=== PATIENT | female | born 1935 | race Caucasian/White ===

== ENCOUNTER 2018-12-29 09:24 | Day surgery (SDC) | payer MEDICARE, OTHER ==
[~2018-12-29] VITALS: Ht 165.1 cm; Wt 55.0 kg
[~2018-12-29 09:24] MED LIST: ALLO100 PO; AMIL5 PO; ATOR40TA PO; CEPH500 PO; CHOL10002 PO; CLOP75 PO; COLCHICINE0.6 MG; CYAN1000I IM; DOXY100T53 PO; Elemental Calc600 MG PO; FENO54 PO; FURO20 PO; Flonase 0.05% N16 GM; MAGCHL64ER PO; METO25ER PO; Mirapex1 MG PO; NYST100SU SS; Omeprazole20 M1 PO; PANT40 PO; POTCHL20ER PO; Prednisone20 MG PO; RANI150 PO; TIOT18 INH; Zithromax250 MG PO
--- NOTE | 2018-12-29 10:14 | NUR ---
PT PREP COMPLETE. AT BEDSIDE. AWAITING PROCEDURE START. PT HAS NO C/O OF CP OR DISCOMFORT AT THIS TIME. ANSWERS ALL QUESTIONS APPROPRIATELY.
--- NOTE | 2018-12-29 12:33 | NUR ---
PT TO RECOVERY AREA APPROX 5 MINUTES AGO. SLEEPS IF LEFT UNDISTURBED. NO C/O PAIN OR DISCOMFORT. RIGHT GROIN SITE STABLE, NO BLEEDING OR SWELLING NOTED WITH PALAPATION. PPP TO RIGHT FOOT AND UNCHANGED FROM PREOP.
--- NOTE | 2018-12-29 17:00 | NUR ---
SUMMARY: PT HAD UNEVENTFUL POST PROCEDURE RECOVERY PERIOD. LAYED FLAT WITHOUT DIFFICULTY DURING ENTIRE STAY. COOPERATIVE WITH ALL INSTRUCTIONS. GROIN REMAINED STABLE WITHOUT BLEEDING OR SWELLING. PPP. AFTER 4 HRS, MD IN TO REMOVE VENOUS SUTURE IN RIGHT GROIN. REDRESSED AND SECURED. MONITORED x 30 MINUTES POST REMOVAL - NO BLEEDING OR ISSUES NOTED. PT PIVOT TRANSFER TO W/C WITH SBA AND TO BATHROOM. VOIDED LARGE AMOUNT. ASSISTED PATIENT TO DRESS SELF. REASSESSED GROIN POST ACTIVITY - REMAINED STABLE AND NO BLEEDING/SWELLING NOTED. REVIEWED DISCHARGE INSTRUCTIONS WITH PATIENT AND - BOTH OF WHOM VERBALIZED UNDERSTANDING OF ALL INSTRUCTIONS GIVEN. IV D/C TIP INTACT AND PT DISCHARGED HOME WITH TO DRIVE HER.
--- NOTE | 2018-12-29 17:11 | NUR ---
PT WAS MEDICATED WITH PAIN MEDICATION WHILE IN RECOVERY PERIOD FOR BACK DISCOMFORT RELATED TO POSITIONING AND PREVIOUS BACK SURGERY. PT STATED MEDICATION AND HOT PAD APPLIED TO LOWER LEFT BACK/HIP AREA WORKED FOR PAIN AND EXPRESSED COMFORT PRIOR TO DISCHARGE.
== END 2018-12-29 16:00 | disposition home or self-care (01) ==
LOC: MHTC 09:24
DX: I35.0 Nonrheumatic aortic (valve) stenosis (principal); Z88.8 Allergy status to other drugs, medicaments and biological substances; I10 Essential (primary) hypertension; E78.5 Hyperlipidemia, unspecified; G25.81 Restless legs syndrome; J44.9 Chronic obstructive pulmonary disease, unspecified; G47.30 Sleep apnea, unspecified; Z87.891 Personal history of nicotine dependence
CPT/HCPCS: 85347; 93456; 93571; 99152; 99153; C1760; C1769; C1887; Q9967

== ENCOUNTER → 2019-01-19 | Outpatient (CLI) | payer MEDICARE, OTHER | END | disposition home or self-care (01) | LOC: PLD 11:11 → LAB SHORT 11:11 | DX: D48.5 Neoplasm of uncertain behavior of skin (principal) | CPT/HCPCS: 88305 ==

== ENCOUNTER → 2019-06-23 | Outpatient (CLI) | payer MEDICARE ==
[2019-06-23 13:33] LABS: Bilirubin, Urine Neg (Neg); Blood, Urine Neg (Neg); Glucose Qualitative, Urine Neg (Neg); Ketones, Urine Neg (Neg); Leukocyte Esterase, Urine 3+ (Neg); Nitrite, Urine Neg (Neg); Protein, Urine Neg (Neg); Specific Gravity, Urine 1.015 (1.003-1.022); Urobilinogen, Urine NORM (Normal)
[2019-06-23 13:54] LABS: Appearance, Urine Hazy (Clear); Color, Urine Yellow (P-Yellow)
[2019-06-23 14:08] LABS: Red Blood Cells, Urine Not Seen /hpf (0-2)
[2019-06-23 14:09] LABS: Bacteria Many /hpf; Squamous Epithelial Cells Mod /hpf (Few); White Blood Cells, Urine 25-50 /hpf (0-5)
== END | disposition home or self-care (01) ==
LOC: OLS 06:13 → LAB SHORT 06:13
PROVIDERS: Internal Medicine
DX: N18.3 Chronic kidney disease, stage 3 (moderate) (principal)
CPT/HCPCS: 81001; 82570; 84156

== ENCOUNTER → 2019-09-06 | Outpatient (CLI) | payer MEDICARE ==
[2019-09-06 10:42] LABS: Source, Urine Clean Catch
[2019-09-06 12:45] LABS: Bilirubin, Urine Neg (Neg); Blood, Urine Neg (Neg); Glucose Qualitative, Urine Neg (Neg); Ketones, Urine Neg (Neg); Leukocyte Esterase, Urine 1+ (Neg); Nitrite, Urine Neg (Neg); Protein, Urine Neg (Neg); Urobilinogen, Urine NORM (Normal)
[2019-09-06 13:13] LABS: Appearance, Urine Clear (Clear); Color, Urine Yellow (P-Yellow); Red Blood Cells, Urine 0-2 /hpf (0-2)
[2019-09-06 13:14] LABS: Bacteria Few /hpf; Squamous Epithelial Cells Few /hpf (Few)
[2019-09-06 14:26] LABS: Protein, Urine Random <5.0 mg/dL (0.0-11.9)
== END | disposition home or self-care (01) ==
LOC: LAB 10:40 → LAB SHORT 10:40
PROVIDERS: Internal Medicine
DX: N18.3 Chronic kidney disease, stage 3 (moderate) (principal)
CPT/HCPCS: 81001; 82570; 84156

== ENCOUNTER 2019-12-18 15:16 | Inpatient (IN) | payer OTHER ==
[~2019-12-18] VITALS: Ht 149.9 cm; Wt 45.8 kg
[~2019-12-18 15:16] MED LIST changes: +B-121000 MC4 PO; -CYAN1000I IM
[2019-12-18 15:42] LABS: BASOPHILS ABSOLUTE AUTO 0.07 K/mm3 (0.00-0.23); BASOPHILS PERCENT AUTO 0 % (0-2); EOSINOPHILS ABSOLUTE AUTO 0.03 K/mm3 (0.00-0.68); EOSINOPHILS PERCENT AUTO 0 % (0-6); Hematocrit 42.3 % (33.0-51.0); IMMATURE GRAN ABSOLUTE AUTO 0.14 K/mm3 (0.00-0.10); IMMATURE GRAN PERCENT AUTO 1 % (0-1); LYMPHOCYTES ABSOLUTE AUTO 1.23 K/mm3 (0.84-5.20); LYMPHOCYTES PERCENT AUTO 6 % (21-46); MONOCYTES ABSOLUTE AUTO 0.95 K/mm3 (0.16-1.47); MONOCYTES PERCENT AUTO 4 % (4-13); Mean Corpuscular HGB 26.7 pg (26.0-34.0); Mean Corpuscular HGB Conc 30.7 g/dL (31.5-36.5); Mean Corpuscular Volume 87 fL (80-100); Mean Platelet Volume 10.3 fL (9.1-12.4); NEUTROPHILS PERCENT AUTO 89 % (41-73); Platelet Count 180 K/mm3 (150-400); RDW Coefficient Variation 17.1 % (11.7-14.2); RDW Standard Deviation 54.1 fL (35.1-46.3); Red Blood Cell Count 4.87 M/mm3 (3.80-5.20); White Blood Cell Count 22.32 K/mm3 (4.00-11.30)
[2019-12-18 16:00] LABS: Alanine Aminotransfer (ALT/SGP 20 U/L (12-78); Albumin, Blood 3.6 g/dL (3.4-5.0); Albumin/Globulin Ratio 0.8 (0.8-1.8); Alk Phos 65 U/L (50-136); Anion Gap 9 mmol/L (6-16); Aspartate Aminotrans (AST/SGOT 18 U/L (12-37); Bilirubin, Total 0.4 mg/dL (0.1-1.0); Blood Urea Nitrogen 32 mg/dL (8-24); Bun/Creatinine Ratio 31.4 (12.0-20.0); CO2, Blood 26 mmol/L (21-32); Calcium, Blood 9.9 mg/dL (8.5-10.1); Chloride, Blood 109 mmol/L (98-108); Creatinine, Blood 1.02 mg/dL (0.40-1.00); Globulin, Blood 4.3 g/dL (2.2-4.0); Glomerular Filtration Rate 55 (60-); Glucose, Blood 161 mg/dL (70-99); Potassium, Blood 3.7 mmol/L (3.5-5.5); Sodium, Blood 144 mmol/L (136-145); Total Protein, Blood 7.9 g/dL (6.4-8.2); Troponin I <0.015 ng/mL (0.000-0.040)
[2019-12-18 16:27] LABS: PCO2 Arterial 41.3 mmHg (35-45); PO2 Arterial 61.9 mmHg (80-100); pH Blood Arterial 7.47 (7.35-7.45)
[2019-12-18 17:56] LABS: Adenovirus Not Detected (NOT DETECT); Bordetella pertussis Not Detected (NOT DETECT); Chlamydophila pneumoniae Not Detected (NOT DETECT); Coronavirus 229E Not Detected (NOT DETECT); Coronavirus HKU1 Not Detected (NOT DETECT); Coronavirus NL63 Not Detected (NOT DETECT); Coronavirus OC43 Not Detected (NOT DETECT); Human Metapneumovirus Not Detected (NOT DETECT); Human Rhinovirus/Enterovirus Not Detected (NOT DETECT); Influenza A Not Detected (NOT DETECT); Influenza A/2009-H1 Not Detected (NOT DETECT); Influenza A/H1 Not Detected (NOT DETECT); Influenza A/H3 Not Detected (NOT DETECT); Influenza B Not Detected (NOT DETECT); Mycoplasma pneumoniae Not Detected (NOT DETECT); Parainfluenza Virus 1 Not Detected (NOT DETECT); Parainfluenza Virus 2 Not Detected (NOT DETECT); Parainfluenza Virus 3 Not Detected (NOT DETECT); Parainfluenza Virus 4 Not Detected (NOT DETECT); Respiratory Syncytial Virus Not Detected (NOT DETECT)
[2019-12-18] MEDS ORDERED: ELIQUIS2.5 MG PO (18:08)
[2019-12-18] MEDS ORDERED: Aspirin EC81 MG PO (18:09)
[2019-12-18] MEDS ORDERED: LEVSOD50 PO (18:10)
[2019-12-18 19:21] LABS: Free Thyroxine 0.87 ng/dL (0.70-1.60)
[2019-12-18 19:23] LABS: Thyroid Stimulating Hormone 19.2 uIU/mL (0.360-4.800)
[2019-12-18 21:23] LABS: Source, Urine Clean Catch
[2019-12-18 21:29] LABS: Appearance, Urine Clear (Clear); Bilirubin, Urine Neg (Neg); Blood, Urine Neg (Neg); Color, Urine Yellow (P-Yellow); Glucose Qualitative, Urine Neg (Neg); Ketones, Urine Neg (Neg); Leukocyte Esterase, Urine 1+ (Neg); Nitrite, Urine Neg (Neg); Protein, Urine 2+ (Neg); Specific Gravity, Urine 1.015 (1.003-1.022); Urobilinogen, Urine NORM (Normal)
[2019-12-18 21:36] LABS: Bacteria Few /hpf; Red Blood Cells, Urine 0-2 /hpf (0-2); Squamous Epithelial Cells Few /hpf (Few)
--- NOTE | 2019-12-19 02:43 | NUR ---
ADMISSION: PATIENT ARRIVED TO [facility] VIA [facility] AT APPROX 1915, PATIENT ABLE TO PIVOT TRANSFER FROM [facility] TO BED WITH 1 PERSON ASSIST. PATIENT ALERT AND ORIENTED BUT FORGETFULL, SKIN FRAGILE BUT C/D/I, FAMILY AT BEDSIDE. ADMISSION COMPLETED AND PATIENT ORIENTED TO CALL LIGHT, ROOM AND HOSPITAL POLICIES. LUNGS AUDIBLY COURSE, PATIENT DYSPNIC WITH ANY ACTIVITY. LACTIC INCREASED FROM 2.2 TO 4.7, MITER CUTTER VALARIE MADE AWARE, NO FURTHER ORDERS AT THIS TIME. VSS, MONITORING CAREFULLY. BED LOW AND LOCKED, CALL LIGHT WITHIN REACH AND EXIT ALARM ON.
[2019-12-19 04:22] LABS: BASOPHILS ABSOLUTE AUTO 0.01 K/mm3 (0.00-0.23); BASOPHILS PERCENT AUTO 0 % (0-2); EOSINOPHILS PERCENT AUTO 0 % (0-6); Hemoglobin 11.4 g/dL (11.5-16.0); IMMATURE GRAN ABSOLUTE AUTO 0.08 K/mm3 (0.00-0.10); IMMATURE GRAN PERCENT AUTO 1 % (0-1); LYMPHOCYTES ABSOLUTE AUTO 0.66 K/mm3 (0.84-5.20); LYMPHOCYTES PERCENT AUTO 5 % (21-46); MONOCYTES ABSOLUTE AUTO 0.06 K/mm3 (0.16-1.47); MONOCYTES PERCENT AUTO 1 % (4-13); Mean Corpuscular HGB 26.6 pg (26.0-34.0); Mean Corpuscular HGB Conc 30.8 g/dL (31.5-36.5); Mean Corpuscular Volume 86 fL (80-100); Mean Platelet Volume 10.2 fL (9.1-12.4); NEUTROPHILS ABSOLUTE AUTO 12.31 K/mm3 (1.96-9.15); NEUTROPHILS PERCENT AUTO 94 % (41-73); Platelet Count 158 K/mm3 (150-400); RDW Coefficient Variation 16.8 % (11.7-14.2); RDW Standard Deviation 52.9 fL (35.1-46.3); Red Blood Cell Count 4.29 M/mm3 (3.80-5.20); White Blood Cell Count 13.12 K/mm3 (4.00-11.30)
[2019-12-19 04:46] LABS: Albumin/Globulin Ratio 0.7 (0.8-1.8); Bilirubin, Total 0.4 mg/dL (0.1-1.0); Bun/Creatinine Ratio 28.1 (12.0-20.0); Calcium, Blood 9.8 mg/dL (8.5-10.1); Creatinine, Blood 1.14 mg/dL (0.40-1.00); Globulin, Blood 4.1 g/dL (2.2-4.0); Potassium, Blood 4.1 mmol/L (3.5-5.5); Total Protein, Blood 7.1 g/dL (6.4-8.2)
[2019-12-19 05:32] LABS: PCO2 Arterial 35.9 mmHg (35-45); PO2 Arterial 73.6 mmHg (80-100); pH Blood Arterial 7.46 (7.35-7.45)
--- NOTE | 2019-12-19 06:46 | NUR ---
SHIFT SUMMARY: PATIENT TO HAVE ECHO TODAY, ST EVAL. PATIENT BEDSIDE SWALLOW COMPLETED AND PATIENT ABLE TO SWALLOW THIN LIQUIDS WITH NO DIFFICULTY. PATIENT COMPLIANT WITH CARE. VSS, BED LOW AND LOCKED, CALL LIGHT WITHIN REACH.
--- NOTE | 2019-12-19 07:55 | NUR ---
ASSUMPTION OF CARE RECEIVED REPORT FROM HIGH SCHOOL TUTOR RN. PT AAOX3, BUT VERY FORGETFUL. VS STABLE, CURRENTLY ON 5L O2 VIA NC. RESPIRATIONS EVEN & UNLABORED AT REST, COARSE CRACKLES NOTED THROUGHOUT LUNG BARRY. PT TO REMAIN NPO UNTIL SPEECH THERAPY IN TO EVALUATE. ALSO OPEN FOR ECHO TODAY. BED LOCKED & IN LOWEST POSITION, CALL GARCIA W/ IN REACH. WILL CONTINUE TO MONITOR.
--- NOTE | 2019-12-19 09:15 | NUR ---
SPEECH THERAPIST PAYAM IYER TO EVALUATE PT; RECOMMENDS MECHANICAL SOFT DIET, SMALL SIPS THIN LIQUIDS, NO STRAWS; ASPIRATION PRECAUTIONS. HOB TO REMAIN 90 DEGRESS DURING MEALS & FOR AT LEAST 45 MIN ATFER MEALS. PT FINISHED W/ BREAKFAST AT THIS TIME. ADMINISTERED MEDS TO PT, ABLE TO SWALLOW WHOLE W/ SIPS OF WATER; NO DIFFICULTY. PT'S SON AT BEDSIDE. WILL CONTINUE TO MONITOR.
--- NOTE | 2019-12-19 10:46 | NUR ---
ECHOCARDIOGRAM COMPLETE
--- NOTE | 2019-12-19 13:14 | NUR ---
SHIFT SUMMARY REPORT GIVEN TO ULYSSES TURK. NO ACUTE CHANGES THROUGHOUT SHIFT. VS REMAIN STABLE, PT CURRENTLY ON 4L O2 VIA NC. PT DENIED ANY CHEST PAIN/PRESSURE OR SOB. SUPERVISOR WRAPPING ROOM DR. HECTOR IN TO SEE PT, ORDERED CT SCAN OF THE CHEST; COMPLETED EARLIER. PLAN FOR POSSIBLE BRONCHOSCOPY PENDING CT RESULTS.
--- NOTE | 2019-12-19 14:50 | NUR ---
Spiritual care visit conducted. Patient is sitting up in bed and alert. Patient shares with me about her medical history, about her relatively recent move to [place] and about her taoist background (patient is Jehovah'S Witness). Patient also shares about about the of her in 2002 and the murder of her son in 2003. Patient is is very tearful about this as can be expected. Patient talks about her strength and her goal of making it to the age of 89. I listen empathically, explore patient's taoist beliefs, normalize patient's experience, reinforce helpful attitudes and practices, recommend at few churches in her belief system and provide grief support, pastoral work counselor and prayer. Patient responds well and shows signs of an elevated mood. I will continue to remain available to patient and family.
--- NOTE | 2019-12-19 17:55 | NUR ---
SHIFT SUMMARY PT A&Ox3; FORGETFUL AT TIMES. PT RESTING IN BED DURING SHIFT. UP TO BATHROOM W/ 1 PERSON ASSIST. PT SOB WITH EXERTION ON 4-5L O2 VIA NC T/O SHIFT, LS COARSE CRACKLES T/O SHIFT. PLANS FOR BRONCOSCOPY TOMORROW, HELD XARELTO IN ANTICIPATION OF PROCEDURE PER DR HECTOR. PT DENEIS PAIN, DIZZINESS, CHEST PAIN/PRESSURE AND NASUEA. PT RECEIVING IV STERIODS AND LASIX THIS AM. VSS. NO OTHER ACUTE CHANGES NOTED DURING SHIFT. WILL CONTINUE TO MONITOR UNTIL REPORT GIVEN TO ONCOMING RN.
[2019-12-20 04:35] LABS: Bun/Creatinine Ratio 35.5 (12.0-20.0); Calcium, Blood 9.6 mg/dL (8.5-10.1); Creatinine, Blood 1.24 mg/dL (0.40-1.00); Potassium, Blood 4.1 mmol/L (3.5-5.5)
--- NOTE | 2019-12-20 05:56 | NUR ---
SHIFT SUMMARY: PATIENT NPO SINCE 0000, X1 EPISODE OF CONFUSION UPON WAKING BUT EASILY REORIENTED. VSS, CALL LIGHT WITHIN REACH, NO OTHER ISSUES NOTED.
--- NOTE | 2019-12-20 07:28 | NUR ---
ASSUMPTION OF CARE PT SITTING UP IN BED. SPO2 93-94% ON 4L O2 VIA NC; BREATHING EVEN AND UNLABORED. REPORTS SOB AND "A LITTLE DIZZINESS" WITH AMBULATION. PT A&Ox3; CALM AND COOPERATIVE WITH CARE. 1 PERSON ASSIST TO BATHROOM. PT DENIES PAIN, CHEST PAIN/PRESSURE, NAUSEA AND NUMB/TINGLING. PT CURRENTLY NPO FOR BRONCOSCOPY THIS AFTERNOON, PT EDUCATED ON NPO STATUS AND PLANS FOR PROCEDURE LATER THIS AFTERNOON AND IS AGREEABLE. VSS. WILL CONTINUE TO MONITOR
--- NOTE | 2019-12-20 13:14 | NUR ---
PT TAKEN TO DAY SURGERY
--- NOTE | 2019-12-20 14:52 | NUR ---
12/20/19 1452 Ze Webber History, Chart, Medications and Allergies reviewed before start of procedure.MONITOR INTACT WITH CONTINUOUS PULSE OXIMETRY AND INTERMITTENT BP.3-LEAD EKG REVIEWED WITH PHYSICIAN PRIOR TO START OF PROCEDURE.O2 VIA N/C INTACT THROUGHOUT SEDATION/PROCEDURE.
--- NOTE | 2019-12-20 18:45 | NUR ---
SHIFT SUMMARY PT BACK FROM DAY SURGERY AT 1600, PT O2 SATURATSION 84-86% ON 4L O2 VIA NC, ATEMPTED TO TITRATED TO 7L O2 VIA NC; NOTIFIED RT TITRATED TO 10L O2 VIA NC AT 90-92%; TITRATED BACK DOWN TO 5L O2 VIA NC. VSS. PASSED GAG REFLEX AND SWALLOWED WATER WITH COUGH OR S/SX OF ASPIRATION; RESTARTED PREVIOUS DIET PER DR HECTOR ORDERS. VSS. NO OTHER ACUTE CHANGES NOTED DURING SHIFT. WILL CONTINUE TO MONITOR UNTIL REPORT GIVEN TO ONCOMING RN.
[2019-12-21 05:14] LABS: BASOPHILS ABSOLUTE AUTO 0.02 K/mm3 (0.00-0.23); BASOPHILS PERCENT AUTO 0 % (0-2); EOSINOPHILS PERCENT AUTO 0 % (0-6); Hematocrit 34.5 % (33.0-51.0); Hemoglobin 10.9 g/dL (11.5-16.0); IMMATURE GRAN ABSOLUTE AUTO 0.17 K/mm3 (0.00-0.10); IMMATURE GRAN PERCENT AUTO 1 % (0-1); LYMPHOCYTES ABSOLUTE AUTO 0.94 K/mm3 (0.84-5.20); LYMPHOCYTES PERCENT AUTO 5 % (21-46); MONOCYTES ABSOLUTE AUTO 0.47 K/mm3 (0.16-1.47); MONOCYTES PERCENT AUTO 2 % (4-13); Mean Corpuscular HGB 27.2 pg (26.0-34.0); Mean Corpuscular HGB Conc 31.6 g/dL (31.5-36.5); Mean Corpuscular Volume 86 fL (80-100); Mean Platelet Volume 11.2 fL (9.1-12.4); NEUTROPHILS PERCENT AUTO 92 % (41-73); Platelet Count 169 K/mm3 (150-400); RDW Coefficient Variation 16.6 % (11.7-14.2); RDW Standard Deviation 52.6 fL (35.1-46.3); Red Blood Cell Count 4.01 M/mm3 (3.80-5.20)
[2019-12-21 05:32] LABS: Bun/Creatinine Ratio 38.4 (12.0-20.0); Calcium, Blood 9.4 mg/dL (8.5-10.1); Creatinine, Blood 1.12 mg/dL (0.40-1.00)
--- NOTE | 2019-12-21 05:56 | NUR ---
END OF SHIFT SUMMARY VSS. NO ACUTE CHANGES THIS SHIFT. LUNG SOUNDS COARSE T/O WITH EXP WHEEZIG. PT STATES THIS HAS IMPROVED. REMAINS AT 4LNC WHICH IS BASELINE. PT HAS BEEN SLEEPING OFF AND ON T/O SHIFT. VERY PLEASANT AND COOPRATIVE WITH CARE. WILL CONTINUEBN TO MONITOR UNTIL SHIFT CHANGE.
--- NOTE | 2019-12-21 17:57 | NUR ---
RECEIVED REPORT FROM PCU NURSE, BRONCHOSOPY, COURSE, A+O, CHRONIC RESPIRTORY, CKD3, ON [facility] SOFT DIET, FULL CODE, LYDIA APPRPRIATELY, NO IV, 6L VIA NC, CHOKING PERCAUTIONS, NO STRAW, 90 DEGREE, NO BM FOR 3 DAYS, GFR 49, ACCOMPANIED, ATTEMPTED START IV, TRIED CALL TO PULMOLOGIST TO CHANGE MEDICATION TO PO VS IV, SITTING UP IN BED ENJOYING DINNER
--- NOTE | 2019-12-21 19:25 | NUR ---
a+o, moved up here from pcu, 4L via nc, no IV specialist ok'd po medication so no need to restart IV, call light in reach, in room bed in low position, report given to noc nurse, course, sitting up watching tv and playing cards
[2019-12-22 05:46] LABS: BASOPHILS ABSOLUTE AUTO 0.01 K/mm3 (0.00-0.23); BASOPHILS PERCENT AUTO 0 % (0-2); EOSINOPHILS PERCENT AUTO 0 % (0-6); Hematocrit 34.4 % (33.0-51.0); Hemoglobin 10.8 g/dL (11.5-16.0); IMMATURE GRAN ABSOLUTE AUTO 0.12 K/mm3 (0.00-0.10); IMMATURE GRAN PERCENT AUTO 1 % (0-1); LYMPHOCYTES ABSOLUTE AUTO 0.99 K/mm3 (0.84-5.20); LYMPHOCYTES PERCENT AUTO 8 % (21-46); MONOCYTES ABSOLUTE AUTO 0.15 K/mm3 (0.16-1.47); MONOCYTES PERCENT AUTO 1 % (4-13); Mean Corpuscular HGB 26.9 pg (26.0-34.0); Mean Corpuscular HGB Conc 31.4 g/dL (31.5-36.5); Mean Corpuscular Volume 86 fL (80-100); Mean Platelet Volume 10.5 fL (9.1-12.4); NEUTROPHILS ABSOLUTE AUTO 11.38 K/mm3 (1.96-9.15); NEUTROPHILS PERCENT AUTO 90 % (41-73); Platelet Count 154 K/mm3 (150-400); RDW Coefficient Variation 16.6 % (11.7-14.2); RDW Standard Deviation 52.1 fL (35.1-46.3); Red Blood Cell Count 4.01 M/mm3 (3.80-5.20); White Blood Cell Count 12.65 K/mm3 (4.00-11.30)
[2019-12-22 06:20] LABS: Bun/Creatinine Ratio 41.6 (12.0-20.0); Calcium, Blood 9.2 mg/dL (8.5-10.1); Creatinine, Blood 1.01 mg/dL (0.40-1.00); Potassium, Blood 4.4 mmol/L (3.5-5.5)
--- NOTE | 2019-12-22 07:46 | NUR ---
SHIFT SUMMARY PT IS PLEASANT AND COOPERATIVE WITH CARE THIS NIGHT. ON 4L O2. RESP E/U. SLEPT MUCH OF NIGHT. NO ACUTE CONCERNS OR CHANGES. REPORT TO ONCOMING RN.
[2019-12-22] MEDS ORDERED: LEVOFLOXACIN750 MG PO (15:48)
[2019-12-22] MEDS ORDERED: POLYETHYLENE G500 G1 PO (15:49)
[2019-12-22] MEDS ORDERED: Prednisone10 MG PO (15:50)
[2019-12-22] MEDS ORDERED: Florastor250 MG PO (15:50)
--- NOTE | 2019-12-22 16:59 | NUR ---
SUMMARY/DISCHARGE PT BEING DISCHARGED TO HOME, PT AND SPOUSE VERBALIZE UNDERSTANDING OF DISCHARGE INSTRUCTIONS REGARDING MEDS AND FOLLOW UP, WAITING FOR [facility] TO BRING PORTABLE TANK
--- NOTE | 2019-12-22 17:50 | NUR ---
DISCHARGE PT'S PORTABLE OXYGEN DELIVERED, PT TAKEN OUT SAFELY VIA WHEELCHAIR
== END 2019-12-22 17:46 | disposition home or self-care (01) | DRG 193 ==
LOC: ER 15:16 → PCU 17:02 → MEDS 12-21 17:06
PROVIDERS: Emergency Medicine; Internal Medicine Pulmonary Disease; Physician Assistant; Student in an Organized Health Care Education/Training Program; ADMIT Internal Medicine
PROC: 0B9F8ZX Drainage of Right Lower Lung Lobe, Via Natural or Artificial Opening Endoscopic, Diagnostic (ICD-10-PCS; 2019-12-20)
PROC: 0B9J8ZX Drainage of Left Lower Lung Lobe, Via Natural or Artificial Opening Endoscopic, Diagnostic (ICD-10-PCS; principal; 2019-12-20 14:30)
DX: J18.9 Pneumonia, unspecified organism (principal); J96.21 Acute and chronic respiratory failure with hypoxia; J44.1 Chronic obstructive pulmonary disease with (acute) exacerbation; J44.0 Chronic obstructive pulmonary disease with (acute) lower respiratory infection; E78.5 Hyperlipidemia, unspecified; N18.3 Chronic kidney disease, stage 3 (moderate); G25.81 Restless legs syndrome; M10.9 Gout, unspecified; G30.9 Alzheimer's disease, unspecified; F02.80 Dementia in other diseases classified elsewhere, unspecified severity, without behavioral disturbance, psychotic disturbance, mood disturbance, and anxiety; I25.10 Atherosclerotic heart disease of native coronary artery without angina pectoris; I12.9 Hypertensive chronic kidney disease with stage 1 through stage 4 chronic kidney disease, or unspecified chronic kidney disease; Z99.81 Dependence on supplemental oxygen; Z88.5 Allergy status to narcotic agent; Z88.0 Allergy status to penicillin; Z79.82 Long term (current) use of aspirin; Z79.899 Other long term (current) drug therapy; Z87.891 Personal history of nicotine dependence; Z79.01 Long term (current) use of anticoagulants
CPT/HCPCS: 0099U; 36415; 36600; 71045; 71250; 80048; 80053; 81001; 82803; 83605; 83880; 84145; 84439; 84443; 84484; 85025; 87070; 87086; 87205; 92526; 92610; 93005; 93010; 93306; 94640; 94664; 94667; 94668; 94760; 94762; 96374; 96375; 97110; 97116; 97162; 98960; 99285-25; A9270-GY; J0171; J1940; J1956; J2250; J2920; J2930; J3010; J7512

== ENCOUNTER 2020-02-02 23:38 | Inpatient (IN) | payer OTHER ==
[~2020-02-02] VITALS: Ht 157.5 cm; Wt 53.9 kg
[~2020-02-02 23:38] MED LIST changes: +Aspirin EC81 MG PO; +ELIQUIS2.5 MG PO; +EUTHYROX100 MCG PO; +Florastor250 MG PO; +LEVOFLOXACIN750 MG PO; +POLYETHYLENE G500 G1 PO; +Prednisone10 MG PO
[2020-02-03 00:18] LABS: BASOPHILS PERCENT AUTO 1 % (0-2); EOSINOPHILS ABSOLUTE AUTO 0.06 K/mm3 (0.00-0.68); EOSINOPHILS PERCENT AUTO 1 % (0-6); Hematocrit 42.6 % (33.0-51.0); IMMATURE GRAN ABSOLUTE AUTO 0.18 K/mm3 (0.00-0.10); IMMATURE GRAN PERCENT AUTO 2 % (0-1); LYMPHOCYTES ABSOLUTE AUTO 2.46 K/mm3 (0.84-5.20); LYMPHOCYTES PERCENT AUTO 26 % (21-46); MONOCYTES ABSOLUTE AUTO 0.46 K/mm3 (0.16-1.47); MONOCYTES PERCENT AUTO 5 % (4-13); Mean Corpuscular HGB 26.1 pg (26.0-34.0); Mean Corpuscular HGB Conc 30.5 g/dL (31.5-36.5); Mean Corpuscular Volume 85 fL (80-100); Mean Platelet Volume 11.7 fL (9.1-12.4); NEUTROPHILS ABSOLUTE AUTO 6.09 K/mm3 (1.96-9.15); NEUTROPHILS PERCENT AUTO 65 % (41-73); Platelet Count 242 K/mm3 (150-400); RDW Coefficient Variation 18.3 % (11.7-14.2); RDW Standard Deviation 54.3 fL (35.1-46.3); Red Blood Cell Count 4.99 M/mm3 (3.80-5.20); White Blood Cell Count 9.35 K/mm3 (4.00-11.30)
[2020-02-03 00:33] LABS: PCO2 Arterial 36.3 mmHg (35-45); PO2 Arterial 85.6 mmHg (80-100); pH Blood Arterial 7.54 (7.35-7.45)
[2020-02-03 00:39] LABS: Albumin, Blood 3.1 g/dL (3.4-5.0); Albumin/Globulin Ratio 0.7 (0.8-1.8); Bilirubin, Total 0.4 mg/dL (0.1-1.0); Bun/Creatinine Ratio 20.8 (12.0-20.0); Calcium, Blood 8.8 mg/dL (8.5-10.1); Creatinine, Blood 1.3 mg/dL (0.40-1.00); Globulin, Blood 4.2 g/dL (2.2-4.0); Potassium, Blood 3.3 mmol/L (3.5-5.5); Total Protein, Blood 7.3 g/dL (6.4-8.2); Troponin I 0.069 ng/mL (0.000-0.040)
[2020-02-03 00:42] LABS: Magnesium, Blood 0.5 mg/dL (1.6-2.4)
[2020-02-03 03:18] LABS: Adenovirus Not Detected (NOT DETECT); Bordetella pertussis Not Detected (NOT DETECT); Chlamydophila pneumoniae Not Detected (NOT DETECT); Coronavirus 229E Not Detected (NOT DETECT); Coronavirus HKU1 Not Detected (NOT DETECT); Coronavirus NL63 Not Detected (NOT DETECT); Coronavirus OC43 Not Detected (NOT DETECT); Human Metapneumovirus Not Detected (NOT DETECT); Human Rhinovirus/Enterovirus Not Detected (NOT DETECT); Influenza A/2009-H1 Not Detected (NOT DETECT); Influenza A/H1 Not Detected (NOT DETECT); Influenza A/H3 Not Detected (NOT DETECT); Influenza B Not Detected (NOT DETECT); Mycoplasma pneumoniae Not Detected (NOT DETECT); Parainfluenza Virus 1 Not Detected (NOT DETECT); Parainfluenza Virus 2 Not Detected (NOT DETECT); Parainfluenza Virus 3 Not Detected (NOT DETECT); Parainfluenza Virus 4 Not Detected (NOT DETECT); Respiratory Syncytial Virus Not Detected (NOT DETECT)
--- NOTE | 2020-02-03 05:03 | NUR ---
ASSUMPTION OF CARE: PT UP TO ICU FROM ED. ALERT AND ORIENTED TO SELF AND TOWN. UNABLE TO RECALL MONTH OR YEAR. LUNG SOUNDS CLEAR. ON 6LNC ONCE UP TO ICU HOWEVER IS CURRENTLY ON 9LNC. IN SR. HR IN THE 70S, SBP IN THE 120S. HORVATH IN PLACE DRAINING YELLOW URINE. PT HAS REDDENED AREA ON COCCYX. COVERED WITH MEPILEX. FINGERS AND TOES COOL TO THE TOUCH. 2 PIVS. RAC INFUSING WITH NS AT 100MLS/HR. VANCO. LFA IV PATENT AND SL. WILL CONTINUE TO MONITOR
--- NOTE | 2020-02-03 06:29 | NUR ---
NO ACUTE CHANGES SINCE ADMISSION. PT CURRENTLY RESTING IN BED COMFORTABLY
[2020-02-03 08:38] LABS: BASOPHILS ABSOLUTE AUTO 0.06 K/mm3 (0.00-0.23); BASOPHILS PERCENT AUTO 1 % (0-2); EOSINOPHILS ABSOLUTE AUTO 0.05 K/mm3 (0.00-0.68); EOSINOPHILS PERCENT AUTO 1 % (0-6); Hematocrit 38.8 % (33.0-51.0); Hemoglobin 11.9 g/dL (11.5-16.0); IMMATURE GRAN ABSOLUTE AUTO 0.12 K/mm3 (0.00-0.10); IMMATURE GRAN PERCENT AUTO 1 % (0-1); LYMPHOCYTES ABSOLUTE AUTO 1.35 K/mm3 (0.84-5.20); LYMPHOCYTES PERCENT AUTO 13 % (21-46); MONOCYTES ABSOLUTE AUTO 0.52 K/mm3 (0.16-1.47); MONOCYTES PERCENT AUTO 5 % (4-13); Mean Corpuscular HGB 25.9 pg (26.0-34.0); Mean Corpuscular HGB Conc 30.7 g/dL (31.5-36.5); Mean Corpuscular Volume 85 fL (80-100); Mean Platelet Volume 11.5 fL (9.1-12.4); NEUTROPHILS ABSOLUTE AUTO 8.64 K/mm3 (1.96-9.15); NEUTROPHILS PERCENT AUTO 80 % (41-73); NRBC ABSOLUTE 0.02 K/mm3 (0.00-0.02); NRBC Auto 0.2 /100 WBC (0.0-0.2); Platelet Count 215 K/mm3 (150-400); RDW Coefficient Variation 18.3 % (11.7-14.2); RDW Standard Deviation 53.4 fL (35.1-46.3); Red Blood Cell Count 4.59 M/mm3 (3.80-5.20); White Blood Cell Count 10.74 K/mm3 (4.00-11.30)
[2020-02-03 08:52] LABS: Albumin, Blood 2.8 g/dL (3.4-5.0); Albumin/Globulin Ratio 0.7 (0.8-1.8); Bilirubin, Total 0.4 mg/dL (0.1-1.0); Calcium, Blood 8.6 mg/dL (8.5-10.1); Creatinine, Blood 1.2 mg/dL (0.40-1.00); Magnesium, Blood 2.1 mg/dL (1.6-2.4); Potassium, Blood 3.4 mmol/L (3.5-5.5); Total Protein, Blood 6.8 g/dL (6.4-8.2)
[2020-02-03 09:01] LABS: Vancomycin, Random 27.3 ug/mL
[2020-02-03] MEDS ORDERED: ATOR80 PO (15:32)
[2020-02-03] MEDS ORDERED: MAGNESIUM OXID500 MG PO (15:32)
[2020-02-03] MEDS ORDERED: METO25 PO (15:33)
[2020-02-03] MEDS ORDERED: FURO40 PO (15:33)
--- NOTE | 2020-02-03 15:50 | NUR ---
SPOKE WITH SON BY PHONE, COMPLETED PT'S MEDICATION REC BASED ON HER CURRENT MEDICATION BOTTLES AT HOME. SPOKE TO DR. WORTHINGTON BY PHONE, REPORTED THAT MED REC COMPLETE. PT USES 4 L/MIN NC O2 AT HOME, HAS ENJORE.
--- NOTE | 2020-02-03 18:17 | NUR ---
SHIFT SUMMARY: PT ALERT; KNOWS NAME, , AND CITY. SINUS TACH/SR, NO EDEMA. SEVERAL PHONE CALLS WITH PT'S SPOUSE AND SON TO GIVE UPDATES AND PLAN. O2 NEEDS DECREASED FROM 9 L/MIN HIGH FLOW NC TO 5 L/MIN TONIGHT. DENIES SOB, BUT WAS OBSERVED WITH DYSPNEA WHILE EATING. MAINTAINING O2 SATS AT 90-92%. LUNGS CTAB, BIPAP ON STAND BY. ISOLATION TO R/O COVID 19. HORVATH DRAINING ADEQUATE URINE. LBM UNKNOWN. BELONGINGS DELIVERED FROM HOME BY SPOUSE. PLACED GOLD COLORED RING WITH YELLOW STONE IN SPECIMEN CUP WITH PT LABEL. HAS FULL DENTURES, WIG, LIPSTICK, COMB, CELL PHONE, AND LOOP PULLER.
--- NOTE | 2020-02-03 20:00 | NUR ---
ASSUMPTION OF CARE: PT IS ALERT IN BED. DENIES PAIN. PT REMAINS CONFUSED BUT IS ABLE TO HAVE PLEASANT CONVERSATION. IN SR, HR IN THE 80-90S, SBP IN THE 100S.SPO2 >90% ON 5L HIGH FLOW NC. LUNG SOUNDS CLEAR. PT ON CARDIAC DIET BUT DOESNT HAVE MUCH OF APPETITE. HORVATH IN PLACE DRAINING YELLOW URINE. 2 PIV. PATENT AND SL. WILL CONTINUE TO MONITOR
[2020-02-04 04:39] LABS: Vancomycin, Random 9.5 ug/mL
--- NOTE | 2020-02-04 07:40 | NUR ---
NO ACUTE CHANGES T/O SHIFT. PT SLEPT MAJORITY OF SHIFT. VSS. REPORT PASSED TO ULYSSES RYAN
[2020-02-04 10:54] LABS: BASOPHILS ABSOLUTE AUTO 0.05 K/mm3 (0.00-0.23); BASOPHILS PERCENT AUTO 1 % (0-2); EOSINOPHILS ABSOLUTE AUTO 0.21 K/mm3 (0.00-0.68); EOSINOPHILS PERCENT AUTO 3 % (0-6); Hematocrit 37.4 % (33.0-51.0); Hemoglobin 11.3 g/dL (11.5-16.0); IMMATURE GRAN PERCENT AUTO 1 % (0-1); LYMPHOCYTES ABSOLUTE AUTO 1.81 K/mm3 (0.84-5.20); LYMPHOCYTES PERCENT AUTO 23 % (21-46); MONOCYTES ABSOLUTE AUTO 0.53 K/mm3 (0.16-1.47); MONOCYTES PERCENT AUTO 7 % (4-13); Mean Corpuscular HGB 26.1 pg (26.0-34.0); Mean Corpuscular HGB Conc 30.2 g/dL (31.5-36.5); Mean Corpuscular Volume 86 fL (80-100); Mean Platelet Volume 11.2 fL (9.1-12.4); NEUTROPHILS ABSOLUTE AUTO 5.34 K/mm3 (1.96-9.15); NEUTROPHILS PERCENT AUTO 67 % (41-73); NRBC ABSOLUTE 0.02 K/mm3 (0.00-0.02); NRBC Auto 0.2 /100 WBC (0.0-0.2); Platelet Count 165 K/mm3 (150-400); RDW Coefficient Variation 18.5 % (11.7-14.2); RDW Standard Deviation 55.7 fL (35.1-46.3); Red Blood Cell Count 4.33 M/mm3 (3.80-5.20); White Blood Cell Count 8.04 K/mm3 (4.00-11.30)
[2020-02-04 11:12] LABS: Albumin, Blood 2.5 g/dL (3.4-5.0); Albumin/Globulin Ratio 0.7 (0.8-1.8); Bilirubin, Total 0.3 mg/dL (0.1-1.0); Bun/Creatinine Ratio 18.8 (12.0-20.0); Calcium, Blood 8.3 mg/dL (8.5-10.1); Creatinine, Blood 0.96 mg/dL (0.40-1.00); Globulin, Blood 3.6 g/dL (2.2-4.0); Potassium, Blood 3.2 mmol/L (3.5-5.5); Total Protein, Blood 6.1 g/dL (6.4-8.2)
--- NOTE | 2020-02-04 14:00 | NUR ---
BP 84/44, HR 68. PT DENIES CHEST DISCOMFORT, SOB, DIZZINESS. URINE OUTPUT 240 ML SO FAR THIS SHIFT, HAS POOR PO INTAKE. SPOKE WITH DR. WORTHINGTON IN PERSON, REPORTED VS AND I&O. RECEIVED VERBAL ORDER FOR 250 ML NS BOLUS.
--- NOTE | 2020-02-04 18:41 | NUR ---
PT SITTING UP IN BED EATING. PT BEING FED BY NECKTIE TURNER; ORAL INTAKE MUCH IMPROVED WITH FEEDER. PT DENIES COMPLAINTS AND SMILES OFTEN, REMAINS PLEASANTLY CONFUSED. REPORT TO BE GIVEN TO ONCOMING RN
--- NOTE | 2020-02-04 19:20 | NUR ---
ASSUME CARE: REPORT RECIEVED FROM PAYAM OFF GOING RN. MONITOR INTACT SHOWING SINUS RHYTHM HEART RATE 70'S DENIES DISCOMFORT. WATCHING TV. LUNG SOUNDS CLEAR UPPERL LOBES WITH DECREASED SOUNDS IN THE BASES . RESPIRATIONS REGULAR AND EASY AT REST. SPO2 95-97% ABDOMEN SOFT WITH BOWEL SOUNDS FOUR QUADS. HORVATH PATENT DRAINING CARLOS URINE. NO EDEMA NOTED PEDAL PULSES PRESENT. DRESSING INTACT TO COCCYX. COOPERATIVE TO CARES REMAINS CONFUSED. [facility] AND REPORT CHANGE IN PATIENT CONDITION.
--- NOTE | 2020-02-04 20:54 | NUR ---
FAMILY ON PHONE FOR UPDATE STATES PT HAS NOT BEEN ANSWERING HER CELL PHONE . CELL PHONE IN REACH ON BEDSIDE TABEL UPDATE GIVEN INSTRUCTED TO RETURN CALL AND THIS RN WOULD GO INTO THE ROOM AND ASSURE THAT SHE ANSWER PHONE . PT ON CELL PHONE VISITING WITH SPOUSE
[2020-02-05 03:20] LABS: BASOPHILS ABSOLUTE AUTO 0.06 K/mm3 (0.00-0.23); BASOPHILS PERCENT AUTO 1 % (0-2); EOSINOPHILS ABSOLUTE AUTO 0.31 K/mm3 (0.00-0.68); EOSINOPHILS PERCENT AUTO 4 % (0-6); Hematocrit 34.6 % (33.0-51.0); Hemoglobin 10.9 g/dL (11.5-16.0); IMMATURE GRAN PERCENT AUTO 1 % (0-1); LYMPHOCYTES PERCENT AUTO 20 % (21-46); MONOCYTES ABSOLUTE AUTO 0.44 K/mm3 (0.16-1.47); MONOCYTES PERCENT AUTO 6 % (4-13); Mean Corpuscular HGB 26.7 pg (26.0-34.0); Mean Corpuscular HGB Conc 31.5 g/dL (31.5-36.5); Mean Corpuscular Volume 85 fL (80-100); Mean Platelet Volume 11.3 fL (9.1-12.4); NEUTROPHILS ABSOLUTE AUTO 5.04 K/mm3 (1.96-9.15); NEUTROPHILS PERCENT AUTO 68 % (41-73); Platelet Count 152 K/mm3 (150-400); RDW Coefficient Variation 17.8 % (11.7-14.2); Red Blood Cell Count 4.09 M/mm3 (3.80-5.20); White Blood Cell Count 7.45 K/mm3 (4.00-11.30)
[2020-02-05 03:40] LABS: Alanine Aminotransfer (ALT/SGP 14 U/L (12-78); Albumin, Blood 2.3 g/dL (3.4-5.0); Albumin/Globulin Ratio 0.7 (0.8-1.8); Alk Phos 54 U/L (50-136); Anion Gap 4 mmol/L (6-16); Aspartate Aminotrans (AST/SGOT 18 U/L (12-37); Bilirubin, Total 0.4 mg/dL (0.1-1.0); Blood Urea Nitrogen 16 mg/dL (8-24); Bun/Creatinine Ratio 19.3 (12.0-20.0); CO2, Blood 27 mmol/L (21-32); Calcium, Blood 8.3 mg/dL (8.5-10.1); Chloride, Blood 105 mmol/L (98-108); Creatinine, Blood 0.83 mg/dL (0.40-1.00); Globulin, Blood 3.5 g/dL (2.2-4.0); Glomerular Filtration Rate >60 (60-); Glucose, Blood 77 mg/dL (70-99); Potassium, Blood 3.7 mmol/L (3.5-5.5); Sodium, Blood 136 mmol/L (136-145); Total Protein, Blood 5.8 g/dL (6.4-8.2); Vancomycin, Random 14.8 ug/mL
--- NOTE | 2020-02-05 07:51 | NUR ---
ASSUMED CARE REPORT FROM ULYSSES MUÑOZ. PATIENT AWAKE AND WATCHING TV. IN EHANCED ISOLATION FOR R/O COVID 19. WARM BLANKET PROVIDED FOR TEMP 96.7. PATIENT IS PCU STATUS. ON 5L OXYMIZER. USES 4L AT HOME. REPOSITIONED TO BACK.
--- NOTE | 2020-02-05 07:55 | NUR ---
SHIFT AARON MMARY : RESTS QUIETLY WHEN UNDISTURBED. MONITOR INTACT SHOWING SINUS RHYTHM HEART RATE 60'S-70'S. DENIES DISCOMFORT. LUNG SOUNDS CLEAR UPPER LOBES DECREASED SOUNDS IN THE BASES. AWAKENS EASILY TO VERBAL STIMULI COOPERATIVE TO CARES HOWEVER CONFUSED . ABDOMEN SOFT WITH BOWEL SOUNDS FOUR QUADS. HORVATH PATENT DRAINING CARLOS URINE CONTINUE TO MONITOR AND REPORT CHANGE IN PATIENT CONDITION. REPORT GIVEN TO LORAINE ON COMING RN
--- NOTE | 2020-02-05 11:28 | NUR ---
MD VISIT DR. LANDIS IN. PARAMETERS FOR BP MEDS AND LASIX CHANGED TO HOLD IF SBP LESS THAN 110.
--- NOTE | 2020-02-05 12:39 | NUR ---
PER FAMILY, PATIENT HAS DEMENTIA AND SHE IS NOT A GOOD HISTORIAN. SHE DOES NOT WALK AROUND AT HOME, SHE TOLD DR. LANDIS. SHE IS NOT ABLE TO TAKE CARE OF HERSELF.
--- NOTE | 2020-02-05 13:52 | NUR ---
PATIENT'S FAMILY CAME TO STAND OUTSIDE HER WINDOW. ULYSSES STEIN. CALLED THEM ON THE PHONE SO SHE COULD TALK TO THEM WHILE THEY WERE OUT THERE. SHE TOLD THEM TO WAIT, SHE WOULD COME TO THEM. HAD TO BE REMINDED THAT SHE COULD NOT GO HOME YET. SHE SAID SHE WAS NOT SICK ANYMORE, BUT SHE HAS VERY POOR SHORT-TERM MEMORY PER FAMILY (DEMENTIA)
--- NOTE | 2020-02-05 16:52 | NUR ---
REPORT GIVEN TO ULYSSES RIOS PT BENG TRANSFERED 344.
--- NOTE | 2020-02-05 18:30 | NUR ---
PATIENT OUT OF ICU IN W/C WITH ULYSSES SCHILLING. SHE WAS ALLOWED TO FINISH HER DINNER BEFORE HER TRANSFER. HER FAMILY BROUGHT IN HER IPAD. ALL BELONGINGS WITH HER.
--- NOTE | 2020-02-05 19:00 | NUR ---
ASSUMED CARE: RECEIVED REPORT FROM DAYSHIFT RN. ASSUMED CARE OF PT. RESTING COMFORTABLY AT THIS TIME, NO S/S ACUTE DISTRESS NOTED. CALL LIGHT, POSSESSIONS IN REACH, BED IN LOWEST POSITION WITH BED ALARM ACTIVATED. WILL CONTINUE TO MONITOR.
--- NOTE | 2020-02-06 04:05 | NUR ---
SHIFT SUMMARY PT RESTING IN BED COMFORTABLY, NO S/S ACUTE DISTRESS NOTED. WAS MONITORED EVERY 1-2 HOURS WITH NEEDS MET, DENIES NEEDS AT THIS TIME. NO ACUTE EVENTS T/O NIGHT, VS AND O2 SATS STABLE. CALL LIGHT, POSSESSIONS IN REACH, BED IN LOWEST POSITION WITH ALARM ON. WILL CONTINUE TO MONITOR UNTIL DAY RN ASSUMES CARE.
[2020-02-06 05:19] LABS: BASOPHILS ABSOLUTE AUTO 0.06 K/mm3 (0.00-0.23); BASOPHILS PERCENT AUTO 1 % (0-2); EOSINOPHILS ABSOLUTE AUTO 0.27 K/mm3 (0.00-0.68); EOSINOPHILS PERCENT AUTO 4 % (0-6); Hemoglobin 10.8 g/dL (11.5-16.0); IMMATURE GRAN ABSOLUTE AUTO 0.14 K/mm3 (0.00-0.10); IMMATURE GRAN PERCENT AUTO 2 % (0-1); LYMPHOCYTES ABSOLUTE AUTO 1.72 K/mm3 (0.84-5.20); LYMPHOCYTES PERCENT AUTO 26 % (21-46); MONOCYTES ABSOLUTE AUTO 0.42 K/mm3 (0.16-1.47); MONOCYTES PERCENT AUTO 6 % (4-13); Mean Corpuscular HGB 26.4 pg (26.0-34.0); Mean Corpuscular HGB Conc 30.9 g/dL (31.5-36.5); Mean Corpuscular Volume 86 fL (80-100); Mean Platelet Volume 11.4 fL (9.1-12.4); NEUTROPHILS ABSOLUTE AUTO 4.02 K/mm3 (1.96-9.15); NEUTROPHILS PERCENT AUTO 61 % (41-73); Platelet Count 170 K/mm3 (150-400); RDW Standard Deviation 54.2 fL (35.1-46.3); Red Blood Cell Count 4.09 M/mm3 (3.80-5.20); White Blood Cell Count 6.63 K/mm3 (4.00-11.30)
[2020-02-06 05:38] LABS: Alanine Aminotransfer (ALT/SGP 14 U/L (12-78); Albumin, Blood 2.4 g/dL (3.4-5.0); Albumin/Globulin Ratio 0.8 (0.8-1.8); Alk Phos 53 U/L (50-136); Anion Gap 3 mmol/L (6-16); Aspartate Aminotrans (AST/SGOT 15 U/L (12-37); Bilirubin, Total 0.4 mg/dL (0.1-1.0); Blood Urea Nitrogen 13 mg/dL (8-24); Bun/Creatinine Ratio 14.7 (12.0-20.0); CO2, Blood 30 mmol/L (21-32); Calcium, Blood 8.9 mg/dL (8.5-10.1); Chloride, Blood 105 mmol/L (98-108); Creatinine, Blood 0.89 mg/dL (0.40-1.00); Globulin, Blood 3.2 g/dL (2.2-4.0); Glomerular Filtration Rate >60 (60-); Glucose, Blood 80 mg/dL (70-99); Potassium, Blood 3.9 mmol/L (3.5-5.5); Sodium, Blood 138 mmol/L (136-145); Total Protein, Blood 5.6 g/dL (6.4-8.2)
--- NOTE | 2020-02-06 17:18 | NUR ---
SHIFT SUMMARY PT WORKED WITH PHYSICAL THERAPY AND OT THIS SHIFT. PT AMBULATING WILL WITH FWW AND SBA TO BATHROOM. PT VOIDED AFTER HORVATH REMOVAL THIS AM. PT A POSSIBLE DC FOR TOMORROW PER DR. LANDIS. PT FAMILY UPDATED ON PT CONDITION THIS SHIFT. NO ACUTE CHANGES IN PT ASSESSMENT AT THIS TIME. VSS. WILL CONTINUE TO MONITOR UNTIL TURNOVER IS COMPLETE.
[2020-02-07 05:02] LABS: BASOPHILS ABSOLUTE AUTO 0.09 K/mm3 (0.00-0.23); BASOPHILS PERCENT AUTO 1 % (0-2); EOSINOPHILS ABSOLUTE AUTO 0.26 K/mm3 (0.00-0.68); EOSINOPHILS PERCENT AUTO 3 % (0-6); Hematocrit 37.8 % (33.0-51.0); Hemoglobin 11.7 g/dL (11.5-16.0); IMMATURE GRAN ABSOLUTE AUTO 0.13 K/mm3 (0.00-0.10); IMMATURE GRAN PERCENT AUTO 2 % (0-1); LYMPHOCYTES ABSOLUTE AUTO 1.85 K/mm3 (0.84-5.20); LYMPHOCYTES PERCENT AUTO 23 % (21-46); MONOCYTES ABSOLUTE AUTO 0.54 K/mm3 (0.16-1.47); MONOCYTES PERCENT AUTO 7 % (4-13); Mean Corpuscular HGB 26.3 pg (26.0-34.0); Mean Corpuscular Volume 85 fL (80-100); Mean Platelet Volume 10.9 fL (9.1-12.4); NEUTROPHILS ABSOLUTE AUTO 5.21 K/mm3 (1.96-9.15); NEUTROPHILS PERCENT AUTO 65 % (41-73); Platelet Count 160 K/mm3 (150-400); RDW Coefficient Variation 18.3 % (11.7-14.2); RDW Standard Deviation 54.4 fL (35.1-46.3); Red Blood Cell Count 4.45 M/mm3 (3.80-5.20); White Blood Cell Count 8.08 K/mm3 (4.00-11.30)
--- NOTE | 2020-02-07 05:10 | NUR ---
PT A/O 4 WITH OCCASIONAL CONFUSION. PT HAS CALLED OUT A COUPLE OF TIMES STATING SHE WANTS TO GO HOME. BED ALARM ON. PT DOES NOT USE CALL LIGHT WHEN GETTING UP. DENIES PAIN, SOB, DIZZINESS. VSS. NO ACUTE CHANGES. PLEASANT AND COOPERATIVE.
[2020-02-07 05:19] LABS: Alanine Aminotransfer (ALT/SGP 14 U/L (12-78); Albumin, Blood 2.5 g/dL (3.4-5.0); Albumin/Globulin Ratio 0.7 (0.8-1.8); Alk Phos 54 U/L (50-136); Anion Gap 5 mmol/L (6-16); Aspartate Aminotrans (AST/SGOT 15 U/L (12-37); Bilirubin, Total 0.2 mg/dL (0.1-1.0); Blood Urea Nitrogen 14 mg/dL (8-24); Bun/Creatinine Ratio 16.5 (12.0-20.0); CO2, Blood 29 mmol/L (21-32); Calcium, Blood 9.2 mg/dL (8.5-10.1); Chloride, Blood 104 mmol/L (98-108); Creatinine, Blood 0.85 mg/dL (0.40-1.00); Globulin, Blood 3.6 g/dL (2.2-4.0); Glomerular Filtration Rate >60 (60-); Glucose, Blood 84 mg/dL (70-99); Potassium, Blood 3.8 mmol/L (3.5-5.5); Sodium, Blood 138 mmol/L (136-145); Total Protein, Blood 6.1 g/dL (6.4-8.2)
[2020-02-07] MEDS ORDERED: LEVFLO500 PO (14:37)
[2020-02-07] MEDS ORDERED: ALBU2.5V5 INH (14:38)
[2020-02-07] MEDS ORDERED: Duoneb 2.5-0.5 M3 ML INH (14:39)
--- NOTE | 2020-02-07 16:14 | NUR ---
PT DISCHARGED. PT DISCHARGED IN STABLE CONDITION WITH NO ACUTE CHANGES IN ASSESSMENT. PT IV REMOVED & INTACT. PT & BELONGINGS WHEELED OUT BY THIS RN. PT SPOUSE, CARISA, AND SON, RUSTAM, EDUCATED ON DC INSTRUCTIONS AND FOLLOW UP APPOINTMENTS. MEDS FAXED TO [facility]. SPOUSE AND SON DENY NEED FOR FURTHER EDUCATION AT THIS TIME.
== END 2020-02-07 16:08 | disposition home health service (06) | DRG 291 ==
LOC: ER 23:38 → MEDS 02-03 02:10 → ICUW 02-03 02:10 → MEDS 02-05 18:31 → ENPENDDIS 02-07 14:17 → MEDS 02-07 16:08
PROVIDERS: Emergency Medicine; Family Medicine; ADMIT Internal Medicine
DX: I13.0 Hypertensive heart and chronic kidney disease with heart failure and stage 1 through stage 4 chronic kidney disease, or unspecified chronic kidney disease (principal); J96.21 Acute and chronic respiratory failure with hypoxia; I50.31 Acute diastolic (congestive) heart failure; J18.9 Pneumonia, unspecified organism; J44.0 Chronic obstructive pulmonary disease with (acute) lower respiratory infection; E87.3 Alkalosis; J44.9 Chronic obstructive pulmonary disease, unspecified; I48.0 Paroxysmal atrial fibrillation; E87.6 Hypokalemia; E83.42 Hypomagnesemia; N18.3 Chronic kidney disease, stage 3 (moderate); Z66 Do not resuscitate; I35.0 Nonrheumatic aortic (valve) stenosis; G30.9 Alzheimer's disease, unspecified; F02.80 Dementia in other diseases classified elsewhere, unspecified severity, without behavioral disturbance, psychotic disturbance, mood disturbance, and anxiety; E78.5 Hyperlipidemia, unspecified; M10.9 Gout, unspecified; E03.9 Hypothyroidism, unspecified; G25.81 Restless legs syndrome; K21.9 Gastro-esophageal reflux disease without esophagitis; Z99.81 Dependence on supplemental oxygen; Z79.82 Long term (current) use of aspirin; Z79.52 Long term (current) use of systemic steroids; Z87.891 Personal history of nicotine dependence
CPT/HCPCS: 0099U; 36415; 36600; 51702; 71045; 80053; 80202; 82803; 83605; 83735; 83880; 84145; 84443; 84484; 85025; 87040; 93005; 93010; 94640; 94660; 94760; 96365; 96375; 96376; 97161; 97165; 97530; 99285; A9270-GY; J1940; J1956; J3370; J3475; J3480; J7030; J7050; U0002

== ENCOUNTER 2020-02-13 19:36 | Emergency (ER) | payer OTHER ==
[~2020-02-13] VITALS: Ht 152.4 cm; Wt 46.3 kg
[~2020-02-13 19:36] MED LIST changes: +ALBU2.5V5 INH; +ATOR80 PO; +Duoneb 2.5-0.5 M3 ML INH; +FURO40 PO; +LEVFLO500 PO; +MAGNESIUM OXID500 MG PO; +METO25 PO
== END 2020-02-13 22:13 | disposition home or self-care (01) ==
LOC: ER 19:36
DX: M10.9 Gout, unspecified (principal); I12.9 Hypertensive chronic kidney disease with stage 1 through stage 4 chronic kidney disease, or unspecified chronic kidney disease; N18.9 Chronic kidney disease, unspecified; J44.9 Chronic obstructive pulmonary disease, unspecified; E78.5 Hyperlipidemia, unspecified; K21.9 Gastro-esophageal reflux disease without esophagitis; I25.10 Atherosclerotic heart disease of native coronary artery without angina pectoris; I48.91 Unspecified atrial fibrillation; G30.9 Alzheimer's disease, unspecified; F02.80 Dementia in other diseases classified elsewhere, unspecified severity, without behavioral disturbance, psychotic disturbance, mood disturbance, and anxiety; Z88.0 Allergy status to penicillin; Z87.891 Personal history of nicotine dependence; Z88.6 Allergy status to analgesic agent; Z88.5 Allergy status to narcotic agent; Z79.82 Long term (current) use of aspirin; Z79.899 Other long term (current) drug therapy
CPT/HCPCS: 73110; 99283-25

== ENCOUNTER 2020-02-26 16:01 | Inpatient (IN) | payer OTHER ==
[~2020-02-26] VITALS: Ht 157.5 cm; Wt 56.0 kg
[~2020-02-26 16:01] MED LIST changes: -ALBU2.5V5 INH; +ALBU2.5V5 NEB; -ALLO100 PO; -ATOR80 PO; -CHOL10002 PO; -Duoneb 2.5-0.5 M3 ML INH; +Duoneb 2.5-0.5 M3 ML NEB; -EUTHYROX100 MCG PO; +EUTHYROX50 MCG PO; -Elemental Calc600 MG PO; -MAGNESIUM OXID500 MG PO; -METO25 PO; +SPIRIVA RESPIMAT4 GM INH; -TIOT18 INH
[2020-02-26 16:32] LABS: Source, Urine Catheter
[2020-02-26 16:35] LABS: Bilirubin, Urine Neg (Neg); Blood, Urine Neg (Neg); Glucose Qualitative, Urine Neg (Neg); Ketones, Urine 1+ (Neg); Leukocyte Esterase, Urine 1+ (Neg); Nitrite, Urine Neg (Neg); Protein, Urine 2+ (Neg); Urobilinogen, Urine NORM (Normal)
[2020-02-26 16:38] LABS: Appearance, Urine Clear (Clear); Color, Urine Yellow (P-Yellow)
[2020-02-26 16:45] LABS: Bacteria Not Seen /hpf; Mucus Not Seen (0-Heavy); Red Blood Cells, Urine Not Seen /hpf (0-2); Renal Epithelial Rare /hpf (0-Rare); Squamous Epithelial Cells Not Seen /hpf (Few); White Blood Cells, Urine 0-2 /hpf (0-5)
[2020-02-26 16:52] LABS: BASOPHILS ABSOLUTE AUTO 0.07 K/mm3 (0.00-0.23); BASOPHILS PERCENT AUTO 1 % (0-2); EOSINOPHILS ABSOLUTE AUTO 0.03 K/mm3 (0.00-0.68); EOSINOPHILS PERCENT AUTO 0 % (0-6); Hemoglobin 11.8 g/dL (11.5-16.0); IMMATURE GRAN ABSOLUTE AUTO 0.08 K/mm3 (0.00-0.10); IMMATURE GRAN PERCENT AUTO 1 % (0-1); LYMPHOCYTES ABSOLUTE AUTO 1.93 K/mm3 (0.84-5.20); LYMPHOCYTES PERCENT AUTO 15 % (21-46); MONOCYTES ABSOLUTE AUTO 0.48 K/mm3 (0.16-1.47); MONOCYTES PERCENT AUTO 4 % (4-13); Mean Corpuscular HGB Conc 30.3 g/dL (31.5-36.5); Mean Corpuscular Volume 86 fL (80-100); Mean Platelet Volume 10.3 fL (9.1-12.4); NEUTROPHILS ABSOLUTE AUTO 10.62 K/mm3 (1.96-9.15); NEUTROPHILS PERCENT AUTO 81 % (41-73); Platelet Count 306 K/mm3 (150-400); RDW Coefficient Variation 19.6 % (11.7-14.2); Red Blood Cell Count 4.53 M/mm3 (3.80-5.20); White Blood Cell Count 13.21 K/mm3 (4.00-11.30)
[2020-02-26 17:10] LABS: PCO2 Arterial 36.7 mmHg (35-45); PO2 Arterial 52.5 mmHg (80-100); pH Blood Arterial 7.57 (7.35-7.45)
[2020-02-26 17:11] LABS: Albumin, Blood 3.1 g/dL (3.4-5.0); Albumin/Globulin Ratio 0.8 (0.8-1.8); Bilirubin, Total 0.5 mg/dL (0.1-1.0); Bun/Creatinine Ratio 13.3 (12.0-20.0); Creatinine, Blood 1.13 mg/dL (0.40-1.00); Potassium, Blood 3.2 mmol/L (3.5-5.5); Total Protein, Blood 7.1 g/dL (6.4-8.2); Troponin I 0.084 ng/mL (0.000-0.040)
[2020-02-26 17:13] LABS: Magnesium, Blood 0.4 mg/dL (1.6-2.4)
[2020-02-26] MEDS ORDERED: ALLO100 PO (18:50)
[2020-02-26] MEDS ORDERED: VITAMIN D325 MCG PO (18:51)
[2020-02-26] MEDS ORDERED: ATOR20 PO (18:51)
[2020-02-26] MEDS ORDERED: MAGNESIUM250 MG PO (18:52)
[2020-02-26] MEDS ORDERED: CALCIUM 600 +1 EA10 PO (18:53)
[2020-02-26] MEDS ORDERED: POTCHL20ER PO (20:55)
[2020-02-26] MEDS ORDERED: Amiodarone HCl200 MG PO (20:55)
[2020-02-26] MEDS ORDERED: Flonase 0.05% N16 GM (20:56)
[2020-02-27 04:42] LABS: BASOPHILS ABSOLUTE AUTO 0.06 K/mm3 (0.00-0.23); BASOPHILS PERCENT AUTO 1 % (0-2); EOSINOPHILS ABSOLUTE AUTO 0.08 K/mm3 (0.00-0.68); EOSINOPHILS PERCENT AUTO 1 % (0-6); Hematocrit 34.3 % (33.0-51.0); Hemoglobin 10.5 g/dL (11.5-16.0); IMMATURE GRAN ABSOLUTE AUTO 0.08 K/mm3 (0.00-0.10); IMMATURE GRAN PERCENT AUTO 1 % (0-1); LYMPHOCYTES ABSOLUTE AUTO 1.76 K/mm3 (0.84-5.20); LYMPHOCYTES PERCENT AUTO 14 % (21-46); MONOCYTES ABSOLUTE AUTO 0.55 K/mm3 (0.16-1.47); MONOCYTES PERCENT AUTO 4 % (4-13); Mean Corpuscular HGB 26.1 pg (26.0-34.0); Mean Corpuscular HGB Conc 30.6 g/dL (31.5-36.5); Mean Corpuscular Volume 85 fL (80-100); Mean Platelet Volume 10.4 fL (9.1-12.4); NEUTROPHILS ABSOLUTE AUTO 10.28 K/mm3 (1.96-9.15); NEUTROPHILS PERCENT AUTO 80 % (41-73); Platelet Count 253 K/mm3 (150-400); RDW Coefficient Variation 19.5 % (11.7-14.2); RDW Standard Deviation 58.4 fL (35.1-46.3); Red Blood Cell Count 4.03 M/mm3 (3.80-5.20); White Blood Cell Count 12.81 K/mm3 (4.00-11.30)
[2020-02-27 04:59] LABS: Bun/Creatinine Ratio 15.6 (12.0-20.0); Calcium, Blood 8.7 mg/dL (8.5-10.1); Creatinine, Blood 0.96 mg/dL (0.40-1.00); Magnesium, Blood 1.3 mg/dL (1.6-2.4); Potassium, Blood 2.8 mmol/L (3.5-5.5)
--- NOTE | 2020-02-27 06:43 | NUR ---
SHIFT SUMMARY PT HAS BEEN ABLE TO REST QUIETLY SINCE ADMISSION TO THE FLOOR. SHE IS ALERT TO HERSELF AND COOPERATIVE WITH CARE. VSS, O2 SATS >93% ON 6L VIA OXYMIZER, LUNGS REMAIN COARSE/MOIST, DB&COUGH ENC. ABX INFUSED PER EMAR. NPO EXCEPT MEDS W/APPLESAUCE. ATTENDS CHANGED PRN. Q2 TURNS. PT WAS ABLE TO SPEAK TO HER BEFORE BED. BED ALARM IN PLACE FOR SAFETY. CALL LIGHT IN REACH, WCTM.
--- NOTE | 2020-02-27 12:58 | NUR ---
Spiritual care visit conducted. Patient tells me about her medical issues, her family and her holiness belief system. Patient is tearful when talking about her diagnosis. The emotional pain is connected to fears and family. Patient is a little confused at times and clear at others. I listen empathically, normalize patients experience and provide pastoral public relations counselor and prayer. Patient responds well and shows signs of improved hope. I will continue to remain available to patient and family.
[2020-02-27 15:31] LABS: Magnesium, Blood 1.9 mg/dL (1.6-2.4); Potassium, Blood 3.6 mmol/L (3.5-5.5)
--- NOTE | 2020-02-27 18:01 | NUR ---
SHIFT SUMMARY: PT ALERT TO SELF, HX DEMENTIA, FORGETFUL GETS EASILY DISTRACTED, SOMETIMES TALKS NONSENSICAL. PT CURRENTLY RECEIVING IV ABO FOR PNA, PT CURRENTLY ON 6L OF O2 VIA OXYMIZER SATS ABOVE 90%, COUGH MOIST SLIGHT WHEEZING UPON EXPIRATION. THE REST OF THE VITALS ARE STABLE, PT DENIES CHEST PAIN/PRESSURE PT HAS BEEN GETTING UP TO USE BSC 1PA. PT ON BED ALARM ATTEMPTED TO GET UP AND WANDER X 2. PT ALSO ON PUREE DIET PER SPEECH THERAPISTS NECTAR THICK NO STRAWS, ON ASPIRATION PRECAUTION PT TOLERATING WELL, NO COUGHING NOTED PER PO INTAKE. PT'S MG LOW AT 1.3 THIS AM MG 2G VIA IV ADMINISTERED TREND UP TO 1.9. K ALSO LOW AT 2.8 2 BAGS OF IV K 20MEQ ADMINISTERED K TREND UP TO 3.6. PT HAS BEEN RESTING IN BED, COOPERATIVE WITH CARES, WILL MONITOR
[2020-02-28 04:32] LABS: BASOPHILS ABSOLUTE AUTO 0.06 K/mm3 (0.00-0.23); BASOPHILS PERCENT AUTO 1 % (0-2); EOSINOPHILS ABSOLUTE AUTO 0.21 K/mm3 (0.00-0.68); EOSINOPHILS PERCENT AUTO 3 % (0-6); Hematocrit 32.7 % (33.0-51.0); Hemoglobin 9.9 g/dL (11.5-16.0); IMMATURE GRAN ABSOLUTE AUTO 0.05 K/mm3 (0.00-0.10); IMMATURE GRAN PERCENT AUTO 1 % (0-1); LYMPHOCYTES ABSOLUTE AUTO 1.98 K/mm3 (0.84-5.20); LYMPHOCYTES PERCENT AUTO 30 % (21-46); MONOCYTES ABSOLUTE AUTO 0.35 K/mm3 (0.16-1.47); MONOCYTES PERCENT AUTO 5 % (4-13); Mean Corpuscular HGB 26.1 pg (26.0-34.0); Mean Corpuscular HGB Conc 30.3 g/dL (31.5-36.5); Mean Corpuscular Volume 86 fL (80-100); Mean Platelet Volume 10.5 fL (9.1-12.4); NEUTROPHILS ABSOLUTE AUTO 4.05 K/mm3 (1.96-9.15); NEUTROPHILS PERCENT AUTO 61 % (41-73); Platelet Count 211 K/mm3 (150-400); RDW Coefficient Variation 19.7 % (11.7-14.2); RDW Standard Deviation 60.8 fL (35.1-46.3); Red Blood Cell Count 3.79 M/mm3 (3.80-5.20)
[2020-02-28 04:54] LABS: Alanine Aminotransfer (ALT/SGP 13 U/L (12-78); Albumin, Blood 2.4 g/dL (3.4-5.0); Albumin/Globulin Ratio 0.7 (0.8-1.8); Alk Phos 54 U/L (50-136); Anion Gap 7 mmol/L (6-16); Aspartate Aminotrans (AST/SGOT 16 U/L (12-37); Bilirubin, Total 0.2 mg/dL (0.1-1.0); Blood Urea Nitrogen 15 mg/dL (8-24); Bun/Creatinine Ratio 18.1 (12.0-20.0); CO2, Blood 29 mmol/L (21-32); Calcium, Blood 8.6 mg/dL (8.5-10.1); Chloride, Blood 102 mmol/L (98-108); Creatinine, Blood 0.83 mg/dL (0.40-1.00); Globulin, Blood 3.3 g/dL (2.2-4.0); Glomerular Filtration Rate >60 (60-); Glucose, Blood 58 mg/dL (70-99); Magnesium, Blood 1.6 mg/dL (1.6-2.4); Potassium, Blood 3.5 mmol/L (3.5-5.5); Sodium, Blood 138 mmol/L (136-145); Total Protein, Blood 5.7 g/dL (6.4-8.2)
--- NOTE | 2020-02-28 06:37 | NUR ---
SHIFT SUMMARY PT REMAINS ORIENTED TO SELF, VSS, ON 6L VIA NC. PT WAS PLACED IN A SHASHI VEST LAST NIGHT DUE TO SAFETY RISKS. SHE WAS CONTINUALLY CLIMBING OOB AND TRYING TO WANDER IN THE HALLS WITH AN UNSTEADY GAIT. FREQUENT REORIENTATION AND OTHER TACTICS WERE USED PRIOR WITH NO SUCCESS. PT HAS TOLERATED THE VEST WITH NO PROBLEMS, CIRC REMAINS WNL, AFFECT IS HAPPY. SHE IS CURRENTLY SITTING UP IN BED WATCHING TV TALKING TO HERSELF. PT HAS HAD MULTIPLE SNACKS THROUGH THE NIGHT, SHE TOLERATED THEM WITH NO SWALLOWING PROBLEMS. Q2 TOILETING PROVIDED. CHEST XRAY COMPLETED THIS AM. NO OTHER ACUTE CHANGES. WCTM, CALL LIGHT IN REACH.
--- NOTE | 2020-02-28 19:47 | NUR ---
SHIFT SUMMARY: PT IS STILL CONFUSED HAS MULTIPLE ATTEMPTS OF GETTING OOB/OUT OF CHAIR, KEEPS PULLING THE TELE MONITOR OFF. ISSUE WAS DISCUSSED WITH DR WORTHINGTON ORDER RECEIVED FOR SEROQUEL 25MG BID PRN AND TO DC TELE MONITOR. PT STILL ON SHASHI VEST ON, BED AND TAB ALARM FOR SAFETY. DIET SWITCHED TO MECH SOFT TODAY PT TOLERATING WELL NO COUGHING NOTED WITH MEALS. PT PARTICIPATED WITH ST/PT/OT, PT IS COOPERATIVE BUT GETS EASILY DISTRACTED, SOMETIMES TALKS NONSENSICAL OR NON RELATED TOPIC, WANTS TO GET DRESS AND PACK UP TO GO HOME, PT WAS REDIRECTED MULTIPLE TIMES. PT AMBULATING 1PA TO THE BATHROOM, W/ WALKER W/ PT IN THE UNIT SEROQUEL GIVEN X1 MEDICATION FINALLY TOOK EFFECT AFTER DINNER TIME. PT CURRENTLY IN BED SLEEPING, CALL LIGHTS WITHIN REACH, REPORT GIVEN TO ONCOMING SHIFT.
--- NOTE | 2020-02-29 05:58 | NUR ---
SHIFT SUMMARY PT ALERT; CONFUSED; ORDER TO REFLECT TELE DC; PT CHANGED TO MEDICAL STATUS; DENTURES REMOVED AND PLACED IN CUP; ABX TX PER EMAR; MEDICATIONS CRUSHED AND ADMINISTERED IN APPLESAUCE WITH PT SITTING UP @ 90; PT SLEPT MOST OF SHIFT; VSS; NSR NOTED ON TELE; VSS; O2 SATS >93 ON 4L NC; CALL LIGHT IN REACH; BED IN LOWEST POSITION; WILL CONTINUE TO MONITOR CLOSELY UNTIL HAND OFF TO DAY SHIFT RN.
--- NOTE | 2020-02-29 08:50 | NUR ---
AM NOTE... ASSUMED CARE OF PT APROX 0700. PT IS A&Ox2 WEARING A SHASHI D/T CONFUSION AND HIGH FALL RISK. PT'S VS STABLE AT THIS TIME. PT IS ON 4.5L NC WHICH IS HER BASELINE. PT IS ON PUREE DIET AND WILL BE REEVALUATED BY S/T TODAY. L/S COARSE T/O RR EVEN AND UNLABORED. NO EDEMA NOTED ON ASSESSMENT. BT PRESENT AND NORMOACTIVE, ABD SOFT AND NONTENDER TO PALP. CALL LIGHT IN REACH, BED ALARM IS ON WILL CONTINUE TO MONITOR.
[2020-02-29 09:54] LABS: BASOPHILS ABSOLUTE AUTO 0.09 K/mm3 (0.00-0.23); BASOPHILS PERCENT AUTO 1 % (0-2); EOSINOPHILS ABSOLUTE AUTO 0.21 K/mm3 (0.00-0.68); EOSINOPHILS PERCENT AUTO 3 % (0-6); Hematocrit 41.9 % (33.0-51.0); Hemoglobin 12.2 g/dL (11.5-16.0); IMMATURE GRAN ABSOLUTE AUTO 0.07 K/mm3 (0.00-0.10); IMMATURE GRAN PERCENT AUTO 1 % (0-1); LYMPHOCYTES ABSOLUTE AUTO 2.07 K/mm3 (0.84-5.20); LYMPHOCYTES PERCENT AUTO 32 % (21-46); MONOCYTES ABSOLUTE AUTO 0.24 K/mm3 (0.16-1.47); MONOCYTES PERCENT AUTO 4 % (4-13); Mean Corpuscular HGB 25.9 pg (26.0-34.0); Mean Corpuscular HGB Conc 29.1 g/dL (31.5-36.5); Mean Platelet Volume 9.8 fL (9.1-12.4); NEUTROPHILS ABSOLUTE AUTO 3.89 K/mm3 (1.96-9.15); NEUTROPHILS PERCENT AUTO 59 % (41-73); Platelet Count 210 K/mm3 (150-400); RDW Coefficient Variation 20.1 % (11.7-14.2); RDW Standard Deviation 63.4 fL (35.1-46.3); Red Blood Cell Count 4.71 M/mm3 (3.80-5.20); White Blood Cell Count 6.57 K/mm3 (4.00-11.30)
[2020-02-29 09:58] LABS: Mean Corpuscular Volume 89 fL (80-100)
[2020-02-29 10:12] LABS: Anion Gap 9 mmol/L (6-16); Blood Urea Nitrogen 9 mg/dL (8-24); Bun/Creatinine Ratio 12.4 (12.0-20.0); CO2, Blood 24 mmol/L (21-32); Calcium, Blood 9.3 mg/dL (8.5-10.1); Chloride, Blood 104 mmol/L (98-108); Creatinine, Blood 0.73 mg/dL (0.40-1.00); Glomerular Filtration Rate >60 (60-); Glucose, Blood 99 mg/dL (70-99); Magnesium, Blood 1.2 mg/dL (1.6-2.4); Potassium, Blood 3.4 mmol/L (3.5-5.5); Sodium, Blood 137 mmol/L (136-145)
[2020-02-29] MEDS ORDERED: QUET25 PO (12:58)
[2020-02-29] MEDS ORDERED: CLINDAMYCIN PO (13:00)
[2020-02-29] MEDS ORDERED: LACT PO (13:01)
== END 2020-02-29 14:35 | disposition home or self-care (01) | DRG 177 ==
LOC: ER 16:01 → ERHOLD 16:02 → PCU 16:02
PROVIDERS: Emergency Medicine; Family Medicine; Internal Medicine; ADMIT Hospitalist
DX: J69.0 Pneumonitis due to inhalation of food and vomit (principal); J96.21 Acute and chronic respiratory failure with hypoxia; G92 Toxic encephalopathy; E87.3 Alkalosis; I13.0 Hypertensive heart and chronic kidney disease with heart failure and stage 1 through stage 4 chronic kidney disease, or unspecified chronic kidney disease; J84.9 Interstitial pulmonary disease, unspecified; G30.9 Alzheimer's disease, unspecified; F02.80 Dementia in other diseases classified elsewhere, unspecified severity, without behavioral disturbance, psychotic disturbance, mood disturbance, and anxiety; J44.9 Chronic obstructive pulmonary disease, unspecified; I48.0 Paroxysmal atrial fibrillation; N18.3 Chronic kidney disease, stage 3 (moderate); Z66 Do not resuscitate; E83.42 Hypomagnesemia; E78.5 Hyperlipidemia, unspecified; M10.9 Gout, unspecified; G25.81 Restless legs syndrome; K21.9 Gastro-esophageal reflux disease without esophagitis; I25.10 Atherosclerotic heart disease of native coronary artery without angina pectoris; E87.6 Hypokalemia; I95.9 Hypotension, unspecified; I50.9 Heart failure, unspecified; Z99.81 Dependence on supplemental oxygen; Z87.891 Personal history of nicotine dependence; Z88.0 Allergy status to penicillin; Z79.82 Long term (current) use of aspirin; Z79.899 Other long term (current) drug therapy
CPT/HCPCS: 36415; 36600; 71045; 80048; 80053; 81001; 82803; 83605; 83735; 83880; 84100; 84132; 84145; 84484; 85025; 87086; 92526; 92610; 93005; 93010; 94640; 94760; 96361; 96365; 96366; 96367; 96368; 96376; 97110; 97116; 97162; 97165; 97530; 97535; 99285-25; A9270; A9270-GY; G0378; J0696; J3475; J3480; J7050; P9612

== ENCOUNTER → 2020-03-21 | Outpatient (CLI) | payer OTHER ==
[~2020-03-21] MED LIST changes: +ALLO100 PO; +ATOR20 PO; +Amiodarone HCl200 MG PO; +CALCIUM 600 +1 EA10 PO; +CLINDAMYCIN PO; +LACT PO; +MAGNESIUM250 MG PO; +QUET25 PO; +VITAMIN D325 MCG PO
[2020-03-21 15:11] LABS: Source, Urine Clean Catch
[2020-03-21 16:37] LABS: Bilirubin, Urine Neg (Neg); Blood, Urine 2+ (Neg); Glucose Qualitative, Urine Neg (Neg); Ketones, Urine Neg (Neg); Leukocyte Esterase, Urine 3+ (Neg); Nitrite, Urine Neg (Neg); Protein, Urine 2+ (Neg); Specific Gravity, Urine 1.005 (1.003-1.022); Urobilinogen, Urine NORM (Normal)
[2020-03-21 16:49] LABS: Appearance, Urine Cloudy (Clear); Color, Urine Yellow (P-Yellow)
[2020-03-21 16:51] LABS: White Blood Cells, Urine TNTC /hpf (0-5)
[2020-03-21 16:52] LABS: Bacteria Few /hpf; Squamous Epithelial Cells Few /hpf (Few)
== END | disposition home or self-care (01) ==
LOC: LAB SHORT 15:10 → LAB 15:10
PROVIDERS: Nurse Practitioner Family
DX: R30.9 Painful micturition, unspecified (principal)
CPT/HCPCS: 81001; 87077; 87086; 87147; 87186

== ENCOUNTER 2020-04-12 20:10 | Emergency (ER) | payer OTHER ==
[~2020-04-12] VITALS: Ht 152.4 cm; Wt 44.5 kg
[2020-04-12 20:54] LABS: BASOPHILS ABSOLUTE AUTO 0.09 K/mm3 (0.00-0.23); BASOPHILS PERCENT AUTO 1 % (0-2); EOSINOPHILS ABSOLUTE AUTO 0.23 K/mm3 (0.00-0.68); EOSINOPHILS PERCENT AUTO 3 % (0-6); Hematocrit 34.9 % (33.0-51.0); Hemoglobin 10.5 g/dL (11.5-16.0); IMMATURE GRAN ABSOLUTE AUTO 0.03 K/mm3 (0.00-0.10); IMMATURE GRAN PERCENT AUTO 0 % (0-1); LYMPHOCYTES ABSOLUTE AUTO 2.81 K/mm3 (0.84-5.20); LYMPHOCYTES PERCENT AUTO 40 % (21-46); MONOCYTES PERCENT AUTO 10 % (4-13); Mean Corpuscular HGB 27.6 pg (26.0-34.0); Mean Corpuscular HGB Conc 30.1 g/dL (31.5-36.5); Mean Corpuscular Volume 92 fL (80-100); Mean Platelet Volume 10.5 fL (9.1-12.4); NEUTROPHILS ABSOLUTE AUTO 3.14 K/mm3 (1.96-9.15); NEUTROPHILS PERCENT AUTO 45 % (41-73); Platelet Count 195 K/mm3 (150-400); RDW Coefficient Variation 18.7 % (11.7-14.2); RDW Standard Deviation 62.8 fL (35.1-46.3); Red Blood Cell Count 3.81 M/mm3 (3.80-5.20)
[2020-04-12 21:15] LABS: Alanine Aminotransfer (ALT/SGP 19 U/L (12-78); Albumin, Blood 3.3 g/dL (3.4-5.0); Albumin/Globulin Ratio 0.9 (0.8-1.8); Alk Phos 59 U/L (50-136); Anion Gap 4 mmol/L (6-16); Aspartate Aminotrans (AST/SGOT 27 U/L (12-37); Bilirubin, Total 0.3 mg/dL (0.1-1.0); Blood Urea Nitrogen 25 mg/dL (8-24); Bun/Creatinine Ratio 24.3 (12.0-20.0); CO2, Blood 27 mmol/L (21-32); Calcium, Blood 7.9 mg/dL (8.5-10.1); Chloride, Blood 111 mmol/L (98-108); Creatinine, Blood 1.03 mg/dL (0.40-1.00); Globulin, Blood 3.8 g/dL (2.2-4.0); Glomerular Filtration Rate 54 (60-); Glucose, Blood 97 mg/dL (70-99); Potassium, Blood 3.9 mmol/L (3.5-5.5); Sodium, Blood 142 mmol/L (136-145); Total Protein, Blood 7.1 g/dL (6.4-8.2); Troponin I <0.015 ng/mL (0.000-0.040)
[2020-04-13] MEDS ORDERED: HYDR1TAB94 PO ×2 (01:00→01:01)
== END 2020-04-13 01:25 | disposition home or self-care (01) ==
LOC: ER 20:10
PROVIDERS: Emergency Medicine
DX: M79.604 Pain in right leg (principal); Z88.0 Allergy status to penicillin; Z88.6 Allergy status to analgesic agent; Z88.5 Allergy status to narcotic agent; Z79.899 Other long term (current) drug therapy; J44.9 Chronic obstructive pulmonary disease, unspecified; I12.9 Hypertensive chronic kidney disease with stage 1 through stage 4 chronic kidney disease, or unspecified chronic kidney disease; N18.3 Chronic kidney disease, stage 3 (moderate); E78.5 Hyperlipidemia, unspecified; M10.9 Gout, unspecified; I25.10 Atherosclerotic heart disease of native coronary artery without angina pectoris; I48.0 Paroxysmal atrial fibrillation; Z87.891 Personal history of nicotine dependence
CPT/HCPCS: 36415; 71046; 80053; 84484; 85025; 93005; 93010; 93926; 96374; 96375; 99285-25; J1170; J2405

== ENCOUNTER → 2020-07-16 | Outpatient (CLI) | payer OTHER ==
[~2020-07-16] MED LIST changes: +HYDR1TAB94 PO
== END | disposition home or self-care (01) ==
LOC: LAB EV 16:30 → LAB SHORT 16:30
DX: R05 Cough (principal); Z20.828 Contact with and (suspected) exposure to other viral communicable diseases
CPT/HCPCS: U0003

== ENCOUNTER 2020-09-30 09:42 | Inpatient (IN) | payer OTHER ==
[~2020-09-30] VITALS: Ht 157.5 cm; Wt 49.3 kg
[2020-09-30 10:01] LABS: Base Excess Venous -1.2 mmol/L; PCO2 Venous 47.2 mmHg (38-42); pH Blood Venous 7.33 (7.34-7.37)
[2020-09-30 10:20] LABS: BASOPHILS ABSOLUTE AUTO 0.05 K/mm3 (0.00-0.23); BASOPHILS PERCENT AUTO 1 % (0-2); EOSINOPHILS ABSOLUTE AUTO 0.06 K/mm3 (0.00-0.68); EOSINOPHILS PERCENT AUTO 1 % (0-6); Hematocrit 40.3 % (33.0-51.0); Hemoglobin 12.2 g/dL (11.5-16.0); IMMATURE GRAN ABSOLUTE AUTO 0.07 K/mm3 (0.00-0.10); IMMATURE GRAN PERCENT AUTO 1 % (0-1); LYMPHOCYTES ABSOLUTE AUTO 1.62 K/mm3 (0.84-5.20); LYMPHOCYTES PERCENT AUTO 15 % (21-46); MONOCYTES ABSOLUTE AUTO 0.37 K/mm3 (0.16-1.47); MONOCYTES PERCENT AUTO 3 % (4-13); Mean Corpuscular HGB 25.5 pg (26.0-34.0); Mean Corpuscular HGB Conc 30.3 g/dL (31.5-36.5); Mean Corpuscular Volume 84 fL (80-100); Mean Platelet Volume 10.7 fL (9.1-12.4); NEUTROPHILS PERCENT AUTO 80 % (41-73); Platelet Count 251 K/mm3 (150-400); RDW Coefficient Variation 18.5 % (11.7-14.2); RDW Standard Deviation 56.1 fL (35.1-46.3); Red Blood Cell Count 4.79 M/mm3 (3.80-5.20); White Blood Cell Count 10.77 K/mm3 (4.00-11.30)
[2020-09-30 10:33] LABS: International Normalized Ratio 1.19; Prothrombin Time Results 12.6 Sec (9.7-11.5)
[2020-09-30 10:35] LABS: Albumin, Blood 2.9 g/dL (3.4-5.0); Albumin/Globulin Ratio 0.7 (0.8-1.8); Bilirubin, Total 0.3 mg/dL (0.1-1.0); Bun/Creatinine Ratio 21.4 (12.0-20.0); Calcium, Blood 8.5 mg/dL (8.5-10.1); Creatinine, Blood 1.17 mg/dL (0.40-1.00); Globulin, Blood 4.3 g/dL (2.2-4.0); Potassium, Blood 4.1 mmol/L (3.5-5.5); Total Protein, Blood 7.2 g/dL (6.4-8.2); Troponin I 0.091 ng/mL (0.000-0.040)
[2020-09-30 10:52] LABS: Influenza A, PCR Negative (NEGATIVE); Influenza B, PCR Negative (NEGATIVE); Resp Syncytial Virus, PCR Negative (NEGATIVE); SARS-Cov-2 (COVID-19) PCR, MMC Negative (NEGATIVE)
[2020-09-30] MEDS ORDERED: MAGNESIUM OXID500 MG PO (11:17)
[2020-09-30] MEDS ORDERED: FURO40 PO (11:17)
[2020-09-30] MEDS ORDERED: CALCIUM 600 +1 EA11 PO (11:17)
[2020-09-30] MEDS ORDERED: ALLO100 PO (11:17)
[2020-09-30] MEDS ORDERED: Aspirin EC81 MG PO (11:17)
[2020-09-30] MEDS ORDERED: EUTHYROX50 MCG PO (11:17)
[2020-09-30] MEDS ORDERED: METO25 PO (11:18)
[2020-09-30] MEDS ORDERED: ELIQUIS2.5 MG PO (11:18)
[2020-09-30] MEDS ORDERED: PRAMIPEXOLE (11:18)
[2020-09-30] MEDS ORDERED: POTCHL20ER PO (11:19)
[2020-09-30] MEDS ORDERED: ATOR20 PO (11:19)
[2020-09-30] MEDS ORDERED: PRAMIPEXOLE DIHY1 M1 PO (11:39)
[2020-09-30] MEDS ORDERED: METOPROLOL SUCC25 MG PO (11:40)
[2020-09-30] MEDS ORDERED: ELIQUIS5 M3 PO (11:40)
[2020-09-30] MEDS ORDERED: SYMBICORT 16010.2 GM INH (11:41)
[2020-09-30] MEDS ORDERED: OMEP20ER PO (11:41)
--- NOTE | 2020-09-30 13:31 | NUR ---
Pt arrived from the ED, awake, alert, and cooperative and conversant. WEaring oxygen 4 l/min n.c. delivery. spo2 86%. Pt settled in bed, oxygen gradually increased but spo2 did not improve, and work of breathing was at 28-30/minute, with open mouth near gulping type respirations. Bipap machine was already in room from time of transport from the ED, so it was placed on pt and spo2 improved to 88% on 12/5 and 40% fio2. Work of breathing improved, now 25/ minute and no use of accessory muscles. She is lying in bed, HOB 30 degrees, and appears calm and relaxed.
--- NOTE | 2020-09-30 14:00 | NUR ---
wEARING BIPAP, spo2 improved to 89-91%.
--- NOTE | 2020-09-30 14:19 | NUR ---
Pt converted to sinus rhythm, rate 78-82 bpm, BBB. Cardizem gtt turned off at this time. Pt is lying in bed, still wearing bipap, spo2 91%. Respiratory rate26/min. Attempted to use bedpan, but no success. Had already been incontinent of urine in her attends.
[2020-09-30 14:46] LABS: Thyroid Stimulating Hormone 1.35 uIU/mL (0.360-4.800)
[2020-09-30 14:50] LABS: Magnesium, Blood 0.6 mg/dL (1.6-2.4)
--- NOTE | 2020-09-30 15:13 | NUR ---
Merrickamy here, brought in some personal items for his .
[2020-09-30] MEDS ORDERED: CEFU500T30 PO (15:48)
--- NOTE | 2020-09-30 16:42 | NUR ---
spo2 82% on 4 l/min nasal cannula after pt asked for a break from bipap. Bipap put back on and recovery to spo2 greater than 89% was within 1 minute.
[2020-10-01 04:36] LABS: BASOPHILS ABSOLUTE AUTO 0.04 K/mm3 (0.00-0.23); BASOPHILS PERCENT AUTO 1 % (0-2); EOSINOPHILS ABSOLUTE AUTO 0.12 K/mm3 (0.00-0.68); EOSINOPHILS PERCENT AUTO 1 % (0-6); Hemoglobin 10.2 g/dL (11.5-16.0); IMMATURE GRAN ABSOLUTE AUTO 0.03 K/mm3 (0.00-0.10); IMMATURE GRAN PERCENT AUTO 0 % (0-1); LYMPHOCYTES ABSOLUTE AUTO 1.49 K/mm3 (0.84-5.20); LYMPHOCYTES PERCENT AUTO 17 % (21-46); MONOCYTES ABSOLUTE AUTO 0.33 K/mm3 (0.16-1.47); MONOCYTES PERCENT AUTO 4 % (4-13); Mean Corpuscular HGB 25.2 pg (26.0-34.0); Mean Corpuscular Volume 84 fL (80-100); Mean Platelet Volume 10.5 fL (9.1-12.4); NEUTROPHILS ABSOLUTE AUTO 6.71 K/mm3 (1.96-9.15); NEUTROPHILS PERCENT AUTO 77 % (41-73); Platelet Count 202 K/mm3 (150-400); RDW Coefficient Variation 18.3 % (11.7-14.2); RDW Standard Deviation 55.6 fL (35.1-46.3); Red Blood Cell Count 4.04 M/mm3 (3.80-5.20); White Blood Cell Count 8.72 K/mm3 (4.00-11.30)
--- NOTE | 2020-10-01 04:50 | NUR ---
SUMMARY PATIENT IS ALERT AND ORIENTED TO SELF, PLACE, AND YEAR. PATIENT IS FORGETFUL AND FORGETS LIMITATIONS. PATIENT TRIED TO AMBULATE WITHOUT ASKING FOR ASSISTANCE AT TIMES, SHE IS EASILY REDIRECTED AND PLEASANT. HR 130s-150s, CALLED AND PATIENT MEDICATED, SEE EMAR. PATIENTS HR IS NOW A.FIB 60s-70s. PATIENT TOOK HER OXYGEN OFF SEVERAL TIMES AND NEEDED TO BE REMINDED TO KEEP THE NC ON. 02 SATS >90% ON 4L VIA NC. VSS, NO ACUTE CHANGES. CALL LIGHT IN REACH, BED ALARM ON. WILL CONTINUE TO MONITOR.
[2020-10-01 05:03] LABS: Anion Gap 6 mmol/L (6-16); Blood Urea Nitrogen 24 mg/dL (8-24); Bun/Creatinine Ratio 28.4 (12.0-20.0); CO2, Blood 27 mmol/L (21-32); Calcium, Blood 8.7 mg/dL (8.5-10.1); Chloride, Blood 108 mmol/L (98-108); Creatinine, Blood 0.85 mg/dL (0.40-1.00); Glomerular Filtration Rate >60 (60-); Glucose, Blood 81 mg/dL (70-99); Magnesium, Blood 2.5 mg/dL (1.6-2.4); Sodium, Blood 141 mmol/L (136-145)
[2020-10-01] MEDS ORDERED: MAGNESIUM250 MG PO (15:16)
[2020-10-01] MEDS ORDERED: ALBU2.5V5 INH (15:18)
--- NOTE | 2020-10-01 18:20 | NUR ---
SHIFT SUMMARY PT 1 PERSON ASSIST UP TO BSC. CONTINENT OF URINE TODAY. A/OX1-2 THROUGH DAY. NPO MIDMORNING DUE TO SWALLOWING EVAL. HAS ATTEMPTED TO GET OOB A COUPLE TIMES BUT EASILY REDIRECTABLE AND COOPERATIVE WITH CARE. HAS DENIED PAIN OR RESP DISTRESS. SATS HAVE REMAINED AT 90% THROUGH DAY AND CONTINUOUS OXIMETRY. AT BEDSIDE THIS AFTERNOON AND H/P AND MED LIST COMPLETED. PT NEEDED FREQUENT REMINDING WHILE EATING DINNER TO SWALLOW SEVERAL TIMES AND COUGH WITH ANOTHER SWALLOW. HAVE PROVIDED INSTRUCTION TO AND SON WELL ABOUT CURRENT DIET RESTRICTIONS. SAT ON SIDE OF BED FOR SUPPER AND TOLERATED WELL.
--- NOTE | 2020-10-02 03:38 | NUR ---
SHIFT SUMMARY PT ALERT AND PLEASENTLY CONFUSED THROUGH NIGHT. SOMETIMES SHE THINKS SHE IS ON A BOAT, AT TIMES SHE KNOWS SHE IS IN THE HOSP. NO ACUTE RESPIRTORY DISTRESS OBSERVED, O2@3LPM WITH SATS 92-96%. DENIED CHEST PAIN, TELE SR 80s. STAND BY ASSIST TO BSC, VOIDING CLR YELLOW URINE.
[2020-10-02 04:00] LABS: BASOPHILS PERCENT AUTO 0 % (0-2); EOSINOPHILS PERCENT AUTO 0 % (0-6); Hematocrit 32.1 % (33.0-51.0); Hemoglobin 9.7 g/dL (11.5-16.0); IMMATURE GRAN ABSOLUTE AUTO 0.04 K/mm3 (0.00-0.10); IMMATURE GRAN PERCENT AUTO 1 % (0-1); LYMPHOCYTES ABSOLUTE AUTO 0.66 K/mm3 (0.84-5.20); LYMPHOCYTES PERCENT AUTO 18 % (21-46); MONOCYTES ABSOLUTE AUTO 0.02 K/mm3 (0.16-1.47); MONOCYTES PERCENT AUTO 1 % (4-13); Mean Corpuscular HGB 25.1 pg (26.0-34.0); Mean Corpuscular HGB Conc 30.2 g/dL (31.5-36.5); Mean Corpuscular Volume 83 fL (80-100); Mean Platelet Volume 10.6 fL (9.1-12.4); NEUTROPHILS ABSOLUTE AUTO 3.04 K/mm3 (1.96-9.15); NEUTROPHILS PERCENT AUTO 81 % (41-73); Platelet Count 208 K/mm3 (150-400); RDW Coefficient Variation 17.9 % (11.7-14.2); RDW Standard Deviation 54.1 fL (35.1-46.3); Red Blood Cell Count 3.86 M/mm3 (3.80-5.20); White Blood Cell Count 3.76 K/mm3 (4.00-11.30)
[2020-10-02 04:17] LABS: Anion Gap 8 mmol/L (6-16); Blood Urea Nitrogen 28 mg/dL (8-24); Bun/Creatinine Ratio 33.6 (12.0-20.0); CO2, Blood 23 mmol/L (21-32); Calcium, Blood 9.4 mg/dL (8.5-10.1); Chloride, Blood 106 mmol/L (98-108); Creatinine, Blood 0.83 mg/dL (0.40-1.00); Glomerular Filtration Rate >60 (60-); Glucose, Blood 179 mg/dL (70-99); Potassium, Blood 4.6 mmol/L (3.5-5.5); Sodium, Blood 137 mmol/L (136-145)
[2020-10-02] MEDS ORDERED: AZIT500 PO (15:13)
[2020-10-02] MEDS ORDERED: IPRAT-ALBUT 0.5-3 ML INH (15:15)
[2020-10-02] MEDS ORDERED: CEFD300 PO (15:16)
[2020-10-02] MEDS ORDERED: Prednisone10 MG PO (15:17)
--- NOTE | 2020-10-02 15:52 | NUR ---
DISCHARGE INSTRUCTIONS REVIEWED WITH SPOUSE WITH CLEAR UNDERSTANDING. INSTRUCTIONS REGARDING THICKENED FLUIDS AND PUREE DIET PROVIDED.
== END 2020-10-02 15:29 | disposition home health service (06) | DRG 193 ==
LOC: ER 09:42 → PCU 12:56
PROVIDERS: Emergency Medicine; Internal Medicine; ADMIT Internal Medicine
DX: J18.9 Pneumonia, unspecified organism (principal); J96.21 Acute and chronic respiratory failure with hypoxia; G92 Toxic encephalopathy; F02.81 Dementia in other diseases classified elsewhere, unspecified severity, with behavioral disturbance; F05 Delirium due to known physiological condition; I24.8 Other forms of acute ischemic heart disease; J44.0 Chronic obstructive pulmonary disease with (acute) lower respiratory infection; Z20.828 Contact with and (suspected) exposure to other viral communicable diseases; G30.9 Alzheimer's disease, unspecified; I48.0 Paroxysmal atrial fibrillation; R13.12 Dysphagia, oropharyngeal phase; N18.30 Chronic kidney disease, stage 3 unspecified; Z66 Do not resuscitate; I25.10 Atherosclerotic heart disease of native coronary artery without angina pectoris; E78.5 Hyperlipidemia, unspecified; G25.81 Restless legs syndrome; M10.9 Gout, unspecified; Z99.81 Dependence on supplemental oxygen; Z87.891 Personal history of nicotine dependence; Z79.82 Long term (current) use of aspirin
CPT/HCPCS: 0241U; 36415; 71045; 74230; 80048; 80053; 82803; 83605; 83735; 83880; 84443; 84484; 85025; 85610; 85730; 87040; 92526; 92610; 92611; 93005; 93010; 94640; 94660; 94762; 96365; 96366; 96368; 96376; 97165; 97535; 99285-25; A9270; A9270-GY; J0456; J0692; J0696; J2930; J3475; J7040; J7050

== ENCOUNTER 2020-11-07 15:28 | Inpatient (IN) | payer OTHER ==
[~2020-11-07] VITALS: Ht 152.4 cm; Wt 47.1 kg
[~2020-11-07 15:28] MED LIST changes: +ALBU2.5V5 INH; +AZIT500 PO; +CEFD300 PO; +CEFU500T30 PO; +MAGNESIUM OXID500 MG PO; +METO25 PO; +PRAMIPEXOLE
[2020-11-07 15:52] LABS: BASOPHILS ABSOLUTE AUTO 0.05 K/mm3 (0.00-0.23); BASOPHILS PERCENT AUTO 0 % (0-2); EOSINOPHILS ABSOLUTE AUTO 0.05 K/mm3 (0.00-0.68); EOSINOPHILS PERCENT AUTO 0 % (0-6); Hematocrit 38.2 % (33.0-51.0); Hemoglobin 11.6 g/dL (11.5-16.0); IMMATURE GRAN ABSOLUTE AUTO 0.05 K/mm3 (0.00-0.10); IMMATURE GRAN PERCENT AUTO 0 % (0-1); LYMPHOCYTES ABSOLUTE AUTO 2.17 K/mm3 (0.84-5.20); LYMPHOCYTES PERCENT AUTO 20 % (21-46); MONOCYTES ABSOLUTE AUTO 0.46 K/mm3 (0.16-1.47); MONOCYTES PERCENT AUTO 4 % (4-13); Mean Corpuscular HGB 25.6 pg (26.0-34.0); Mean Corpuscular HGB Conc 30.4 g/dL (31.5-36.5); Mean Corpuscular Volume 84 fL (80-100); Mean Platelet Volume 9.9 fL (9.1-12.4); NEUTROPHILS ABSOLUTE AUTO 8.34 K/mm3 (1.96-9.15); NEUTROPHILS PERCENT AUTO 75 % (41-73); Platelet Count 241 K/mm3 (150-400); RDW Coefficient Variation 19.1 % (11.7-14.2); RDW Standard Deviation 58.1 fL (35.1-46.3); Red Blood Cell Count 4.54 M/mm3 (3.80-5.20); White Blood Cell Count 11.12 K/mm3 (4.00-11.30)
[2020-11-07 16:19] LABS: Alanine Aminotransfer (ALT/SGP 14 U/L (12-78); Albumin, Blood 3.1 g/dL (3.4-5.0); Albumin/Globulin Ratio 0.8 (0.8-1.8); Alk Phos 67 U/L (50-136); Anion Gap 7 mmol/L (6-16); Aspartate Aminotrans (AST/SGOT 15 U/L (12-37); Bilirubin, Total 0.3 mg/dL (0.1-1.0); Blood Urea Nitrogen 16 mg/dL (8-24); Bun/Creatinine Ratio 19.1 (12.0-20.0); CO2, Blood 27 mmol/L (21-32); Calcium, Blood 8.8 mg/dL (8.5-10.1); Chloride, Blood 107 mmol/L (98-108); Creatinine, Blood 0.84 mg/dL (0.40-1.00); Globulin, Blood 3.9 g/dL (2.2-4.0); Glomerular Filtration Rate >60 (60-); Glucose, Blood 105 mg/dL (70-99); Potassium, Blood 4.4 mmol/L (3.5-5.5); Sodium, Blood 141 mmol/L (136-145); Troponin I 0.024 ng/mL (0.000-0.040)
[2020-11-07 22:50] LABS: Influenza A, PCR Negative (NEGATIVE); Influenza B, PCR Negative (NEGATIVE); Resp Syncytial Virus, PCR Negative (NEGATIVE); SARS-Cov-2 (COVID-19) PCR, MMC Negative (NEGATIVE)
[2020-11-07 23:03] LABS: Base Excess Venous 5.6 mmol/L; Bicarbonate Venous 28.7 mmol/L (24.0-30.0); PCO2 Venous 48.5 mmHg (38-42); PO2 Venous 78.3 mmHg (38-42)
[2020-11-07 23:38] LABS: Adenovirus Not Detected (NOT DETECT); Bordetella pertussis Not Detected (NOT DETECT); Chlamydophila pneumoniae Not Detected (NOT DETECT); Coronavirus 229E Not Detected (NOT DETECT); Coronavirus HKU1 Not Detected (NOT DETECT); Coronavirus NL63 Not Detected (NOT DETECT); Coronavirus OC43 Not Detected (NOT DETECT); Human Metapneumovirus Not Detected (NOT DETECT); Human Rhinovirus/Enterovirus Not Detected (NOT DETECT); Influenza A/2009-H1 Not Detected (NOT DETECT); Influenza A/H1 Not Detected (NOT DETECT); Influenza A/H3 Not Detected (NOT DETECT); Influenza B Not Detected (NOT DETECT); Mycoplasma pneumoniae Not Detected (NOT DETECT); Parainfluenza Virus 1 Not Detected (NOT DETECT); Parainfluenza Virus 2 Not Detected (NOT DETECT); Parainfluenza Virus 3 Not Detected (NOT DETECT); Parainfluenza Virus 4 Not Detected (NOT DETECT); Respiratory Syncytial Virus Not Detected (NOT DETECT); SARS-Cov-2 (COVID-19), BioFire Not Detected (NOT DETECT)
--- NOTE | 2020-11-08 00:05 | NUR ---
RECEIVED REPORT FROM DOUGLASED RN. PT TRANSPORTED TO MEDICAL FLOOR VIA GURNEY, STAND-PIVOT TRANSFERRED TO BED WITH ASSIST OF 1. ORIENTED TO ROOM/UNIT. VS OBTAINED, 02 SATS STABLE ON 4L/NC, REPORTED PT'S BASELINE. PT DENIES SOB, PAIN AT THIS TIME; RESPS E/U. DENIES NEEDS. CALL LIGHT, POSSESSIONS IN REACH, BED IN LOW POSITION WITH ALARMS ON. REMINDED PT TO CALL C NEEDS, VERBALIZED UNDERSTANDING. CONTINUE TO MONITOR.
--- NOTE | 2020-11-08 01:10 | NUR ---
THIS RN RECEIVED A PHONE CALL FROM LOUIS SHEPPARD. RECEIVED UPDATED INFORMATION ON PT, NOTIFIED OF ATTEMPTS TO REACH FAMILY TO OBTAIN HX, D/T PT HX OF DEMENTIA, BEING A POOR HISTORIAN. DISCUSSED PREVIOUS HX FROM LAST ADMISSION, AND CURRENT PLAN OF CARE. ORDERS RECEIVED. CONTINUE TO MONITOR.
[2020-11-08 05:04] LABS: BASOPHILS ABSOLUTE AUTO 0.06 K/mm3 (0.00-0.23); BASOPHILS PERCENT AUTO 1 % (0-2); EOSINOPHILS ABSOLUTE AUTO 0.13 K/mm3 (0.00-0.68); EOSINOPHILS PERCENT AUTO 2 % (0-6); Hematocrit 33.8 % (33.0-51.0); Hemoglobin 9.9 g/dL (11.5-16.0); IMMATURE GRAN ABSOLUTE AUTO 0.04 K/mm3 (0.00-0.10); IMMATURE GRAN PERCENT AUTO 1 % (0-1); LYMPHOCYTES ABSOLUTE AUTO 2.51 K/mm3 (0.84-5.20); LYMPHOCYTES PERCENT AUTO 39 % (21-46); MONOCYTES ABSOLUTE AUTO 0.38 K/mm3 (0.16-1.47); MONOCYTES PERCENT AUTO 6 % (4-13); Mean Corpuscular HGB 24.7 pg (26.0-34.0); Mean Corpuscular HGB Conc 29.3 g/dL (31.5-36.5); Mean Corpuscular Volume 84 fL (80-100); Mean Platelet Volume 10.8 fL (9.1-12.4); NEUTROPHILS PERCENT AUTO 52 % (41-73); Platelet Count 207 K/mm3 (150-400); RDW Coefficient Variation 18.8 % (11.7-14.2); RDW Standard Deviation 58.1 fL (35.1-46.3); Red Blood Cell Count 4.01 M/mm3 (3.80-5.20); White Blood Cell Count 6.42 K/mm3 (4.00-11.30)
[2020-11-08 05:24] LABS: Anion Gap 7 mmol/L (6-16); Blood Urea Nitrogen 16 mg/dL (8-24); Bun/Creatinine Ratio 19.2 (12.0-20.0); CO2, Blood 28 mmol/L (21-32); Calcium, Blood 8.3 mg/dL (8.5-10.1); Chloride, Blood 107 mmol/L (98-108); Creatinine, Blood 0.83 mg/dL (0.40-1.00); Glomerular Filtration Rate >60 (60-); Glucose, Blood 79 mg/dL (70-99); Potassium, Blood 3.6 mmol/L (3.5-5.5); Sodium, Blood 142 mmol/L (136-145)
--- NOTE | 2020-11-08 05:37 | NUR ---
SHIFT SUMMARY PT ASLEEP, NO S/S ACUTE DISTRESS NOTED. WAS MONITORED EVERY 1-2 HOURS WITH NEEDS MET. VS REVIEWED, O2 SATS IN LOW 90'S, UPPER 80'S. CURRENTLY ON 7L/OXYMIZER, O2 SATS 96-97%. PT DENIES SOB, DYSPNEA. OTHER VS WNL. PT NPO, PENDING SPEECH THERAPY EVALUATION. DENIES PAIN OR NEEDS AT THIS TIME. CALL LIGHT, POSSESSIONS IN REACH, BED IN LOW POSITION WITH ALARMS ON. CONTINUE TO MONITOR UNTIL REPORT GIVEN TO DAY RN.
[2020-11-08] MEDS ORDERED: EUTHYROX50 MCG PO (15:05)
[2020-11-08] MEDS ORDERED: ALLO100 PO (15:05)
[2020-11-08] MEDS ORDERED: ELIQUIS5 M3 PO (15:06)
[2020-11-08] MEDS ORDERED: ATOR20 PO (15:08)
[2020-11-08] MEDS ORDERED: PRAMIPEXOLE DIHY1 M1 PO (15:08)
[2020-11-08] MEDS ORDERED: IPRAT-ALBUT 0.5-3 ML NEB (15:08)
[2020-11-08] MEDS ORDERED: FURO40 PO (15:09)
[2020-11-08] MEDS ORDERED: OMEP20ER PO (15:09)
[2020-11-08] MEDS ORDERED: POTCHL20ER PO (15:09)
[2020-11-08] MEDS ORDERED: METOPROLOL SUCC25 MG PO (15:09)
[2020-11-08] MEDS ORDERED: SYMBICORT 16010.2 GM INH (15:10)
[2020-11-08] MEDS ORDERED: Aspirin EC81 MG PO (16:03)
[2020-11-08] MEDS ORDERED: MAGNESIUM250 MG PO (16:04)
[2020-11-08] MEDS ORDERED: VITAMIN D31000 UNI1 PO (16:05)
[2020-11-08] MEDS ORDERED: COLCHICINE0.6 MG PO (16:07)
[2020-11-08] MEDS ORDERED: CALCIUM PO (16:07)
--- NOTE | 2020-11-08 17:39 | NUR ---
PT AOX3 AND COOPERATIVE OF CARE. PT IS A ONE PERSON TO RESTROOM. PT HAS BEEN SATING AT 93-95% ON 6L OXIMIZER. PT GET SHORT OF BREATH WITH EXCERTION. DENIES PAIN AND PLEASANT WILL CONTINUE TO MONITOR.
--- NOTE | 2020-11-08 18:17 | NUR ---
ADMIT: DISCHARGE: DX: Pneumonia CC: cpeabody ADMIT: 09/30/20 DISCHARGE: 10/02/20DX: A. FIB RVR, RF. Admit: 02/27/2020 DISCHARGE: DX:HYPOMAGNESEMIA CC: ADMIT:02/03/20 DISCHARGE: 02/07/20 DX:ACUTE RESP FAILURE W/ HYPOXIA CC: CPEABODY ADMIT: 12/18/19 DISCHARGE: 12/22/19 DX: ACUTE ON CHRONIC RESP. FAILURE JYOTHI CALL: CALL FOR JYOTHI RESIDENCE: HOME WITH CAREGIVER: FULL MEDICAL DISCLOSURE TO [place] OR VANESSA TALAVERA- CHILDREN. [phone] DX: AV DISEASE, COPD, CHF, ACUTE DIASTOLIC HEART FAILURE, SEE LIST DME: O2, NEBULIZER COMPACT COMPRESSOR, 4-WHEELED WALKER CCM: none HOME HEALTH: [facility]- 2019; [facility] - 2020 SUMMARY: Admit 11/07/20 11/08/20 No eta for discharge per Dr Siddiqui.. cp 1: Pneumonia A/P: Aspiration vs. COPD exacerbation although patient has no auditory wheeze. She is at her baseline 4 L NC. CXR shows severe RLL pneumonia similar to last admit.
--- NOTE | 2020-11-08 19:19 | NUR ---
recvd report from previous shift ULYSSES Levi. pt lying in bed with oxymizer on 6L, continuous bioxx shows SPO2 97%, HR 75, respirations mildly labored and 18 RR. bed in lowest position, bed rails up x 2, call light within reach
--- NOTE | 2020-11-09 05:36 | NUR ---
shift summary: vss, no acute changes, pt remains pleasantly confused as to situation, is oriented to self, reorients easily. pt tolerated PO intake, denies pain, denies n/v. pt awakens forgetful, takes off NC and turns off continuous Bioxx. nursing staff reorients and reapplies monitoring and O2.
--- NOTE | 2020-11-09 16:09 | NUR ---
PT IS A/OX3, PLEASANT AND COOPERATIVE, THE PT IS UP WITH MINIMAL ASSIST, THE PT GETS MILDLY SOB WITH ACTIVITY APPEARS TO BE BREATHING EASILY AT REST ON O2 @ 4L/MIN VIA OXYMIZER, PT DENIED ANY PAIN T/O THE DAY, THIS AM THE TELE BILLBOARD POSTER REPORTED THAT THE PT HAD CONVERTED TO A-FIB, HOWEVER, SHORTLY AFTER CONVERTED BACK TO SINUS RYTHM, THE PT APPEARS TO BE COMFORTABLE THIS AFTERNOON, PATIENTS IS AT THE BEDSIDE, CALL LIGHT IN REACH, WILL CONTINUE TO MONITOR AND ASSESS FOR CHANGES
--- NOTE | 2020-11-10 04:54 | NUR ---
SHIFT SUMMARY PT HAS RESTED FOR MOST OF THE NIGHT. THERE WAS A PERIOD OF SOME CONFUSION IN THE EALIER PORTION OF THE SHIFT. PT HAD REMOVED HER GOWN AND TELE AND HAD DRESSED IN HER STREET CLOTHES IF SHE HAD FORGOTTEN WHERE SHE WAS AND WAS ATTEMPTING TO LEAVE. PT WAS EASILY REDIRECTED AND HAS RESTED EVER SINCE THAT TIME. PT REMAINS ON 4L O2, SATS WNL. NO ACUTE CHANGES OVERNIGHT, ASSESSMENT UNCHANGED. BED IN LOWEST POSITION, CALL LIGHT WITHIN REACH.
--- NOTE | 2020-11-10 16:18 | NUR ---
PT IS A/OX3, PLEASANT AND COOPERATIVE, FORGETFULL/CONFUSED AT TIMES, EASILY REDIRECTED, THE PT IS UP WITH MINIMAL ASSIST TO THE BATHROOM AND IN HER ROOM, THE PT IS ON O2 @ 4L/MIN VIA NC AT THIS TIME, PT BREATH SOUNDS WERE COURSE THIS AM AND THIS AFTERNOON, AN EXTRA DOSE OF IV LASIX WAS GIVEN ORDERED, THE PT IS ON CONTINUOUS BIOX SAT'S ARE > 92%, PTS IS AT THE BEDSIDE AT THIS TIME, CALL LIGHT IN REACH WILL CONTINUE TO MONITOR AND ASSESS FOR CHANGES
--- NOTE | 2020-11-11 03:06 | NUR ---
NSR TO AFIB CALL FROM PCU PHYSICIAN RELATIONS SPECIALIST AT 0230 THAT PT WAS GOING IN AND OUT OF AFIB, FOR A FEW SECONDS AND THEN SHE WOULD CONVERT TO NSR RHYTHM. DIFFICULT TO DETERMINE DUE TO THE SHORT AMOUNT OF TIME SHE REMAINED IN AFIB PER PHYSICIAN RELATIONS SPECIALIST. RECEIVED ANOTHER CALL A SHORT TIME AFTER THAT PT WAS SUSTAINING AFIB RHYTHM IN 130'S. PER YAEL CHA'S REPORT PT HAD BEEN UP AND MOVING AROUND IN THE ROOM. UPON MY ASSESSMENT OF PT SHE WAS SITTING ON THE TOILET. PT IS ASYMPTOMATIC, AND STATED THAT SHE WAS FEELING OK. AFTER AMBULATING BACK FROM THE BATHROOM HR JUMP UP TO AFIB 150-175. VITALS OBTAINED AND OTHERWISE STABLE. PT HAS A HISTORY OF AFIB AND IS ON METOPROLOL AND ELIQIS. DR. KAMARA CALLED AND NOTIFIED THAT PT CONVERTED FROM NSR TO AFIB. RECEIVED ORDER FOR IV CARDIZEM X1. AFTER SUBMITTING ORDER PT CONVERTED BACK TO NSR 90'S WITH PAC'S AND IS SUSTAINING. DR. KAMARA CALLED AGAIN AND NOTIFIED OF HER R&R AND THAT SHE CONVERTED. OK WITH HOLDING OFF ON CARDIZEM FOR NOW AND ADMINISTERING IT LATER IF NEEDED.
--- NOTE | 2020-11-11 04:19 | NUR ---
AFIB CONVERTED TO NSR PT CONVERTED BACK TO AFIB 130'S TO 140'S SUSTAINING. ADMINISTERED IV CARDIZEM ORDERED AT 0344. PT CONVERTED BACK TO NSR AT 0405. PT IS NOW NSR IN THE 70'S WITH PAC'S.
--- NOTE | 2020-11-11 05:03 | NUR ---
SHIFT SUMMARY PT HAS RESTED MOST OF THE NIGHT. SHE DOES HAVE PERIODS OF CONFUSION WHERE SHE FORGETS WHERE SHE IS AND WILL REMOVE TELE AND SPO2 SENSOR. PT HAS CONVERTED IN AND OUT OF AFIB SINCE AROUND 0230 THIS AM. PT RECEIVED CARDIZEM AND RATE IS NOW CONVERTED BACK TO NSR. SEE PRIOR NURSES NOTES. PT PLESANT WITH CARE, SHE DENIES PAIN OR NEEDS. VITALS OTHERWISE STABLE. BED IN LOWEST POSITION, CALL LIGHT WITHIN REACH.
--- NOTE | 2020-11-11 18:01 | NUR ---
SUMMARY: Admit 11/07/20 11/11/20 Met with Mackenzie and in patient room, discussed medical equipment at home, no needs discussed insurance coverage for medical and pharmacy, adequate. will give her a ride home, helps with cooking, cleaning and care for Mackenzie. Currently has home health with [facility]. PT OT are not reccommending any therapy services, home, needs supervison fulltime. PHYSICAL THERAPY is stating it needs to be someone younger than her . I inquired on family support. says he does it all. NO ETA FOR DISCHARGE FROM DR VALADEZ AT THIS TIME. CP
--- NOTE | 2020-11-12 05:03 | NUR ---
OFFICE COPY SELECTOR SUMMARY A/O TO SELF AND FAMILY. PLEASANT AND COOPERATIVE WITH CARE. UP TO BATHROOM WITH 1ASSIST AND FWW. DENIES PAIN OR SOB. CURRENTLY ON 2L VIA NC WITH SATS GREATER THAN 92. NO ACUTE CHANGES AT THIS TIME. BED IN LOWEST POSITION WITH CALL LIGHT IN REACH. WILL CONTINUE TO MONITOR AND REPORT TO ONCOMING RN.
[2020-11-12 05:39] LABS: BASOPHILS PERCENT AUTO 1 % (0-2); EOSINOPHILS ABSOLUTE AUTO 0.12 K/mm3 (0.00-0.68); EOSINOPHILS PERCENT AUTO 2 % (0-6); Hematocrit 36.9 % (33.0-51.0); Hemoglobin 11.4 g/dL (11.5-16.0); IMMATURE GRAN ABSOLUTE AUTO 0.13 K/mm3 (0.00-0.10); IMMATURE GRAN PERCENT AUTO 2 % (0-1); LYMPHOCYTES ABSOLUTE AUTO 2.95 K/mm3 (0.84-5.20); LYMPHOCYTES PERCENT AUTO 37 % (21-46); MONOCYTES ABSOLUTE AUTO 0.36 K/mm3 (0.16-1.47); MONOCYTES PERCENT AUTO 5 % (4-13); Mean Corpuscular HGB 25.3 pg (26.0-34.0); Mean Corpuscular HGB Conc 30.9 g/dL (31.5-36.5); Mean Corpuscular Volume 82 fL (80-100); Mean Platelet Volume 10.5 fL (9.1-12.4); NEUTROPHILS ABSOLUTE AUTO 4.22 K/mm3 (1.96-9.15); NEUTROPHILS PERCENT AUTO 54 % (41-73); Platelet Count 184 K/mm3 (150-400); RDW Coefficient Variation 18.7 % (11.7-14.2); RDW Standard Deviation 55.5 fL (35.1-46.3); Red Blood Cell Count 4.51 M/mm3 (3.80-5.20); White Blood Cell Count 7.88 K/mm3 (4.00-11.30)
[2020-11-12 05:57] LABS: Alanine Aminotransfer (ALT/SGP 11 U/L (12-78); Albumin, Blood 2.8 g/dL (3.4-5.0); Albumin/Globulin Ratio 0.8 (0.8-1.8); Alk Phos 62 U/L (50-136); Anion Gap 9 mmol/L (6-16); Aspartate Aminotrans (AST/SGOT 16 U/L (12-37); Bilirubin, Total 0.3 mg/dL (0.1-1.0); Blood Urea Nitrogen 10 mg/dL (8-24); Bun/Creatinine Ratio 11.7 (12.0-20.0); CO2, Blood 27 mmol/L (21-32); Calcium, Blood 8.3 mg/dL (8.5-10.1); Chloride, Blood 104 mmol/L (98-108); Creatinine, Blood 0.85 mg/dL (0.40-1.00); Globulin, Blood 3.5 g/dL (2.2-4.0); Glomerular Filtration Rate >60 (60-); Glucose, Blood 81 mg/dL (70-99); Phosphorus, Blood 2.8 mg/dL (2.5-4.9); Sodium, Blood 140 mmol/L (136-145); Total Protein, Blood 6.3 g/dL (6.4-8.2)
[2020-11-12 05:58] LABS: Magnesium, Blood 0.9 mg/dL (1.6-2.4)
--- NOTE | 2020-11-12 06:33 | NUR ---
CRITICAL LAB NOTIFICATION CRITICAL LOW MAGNESIUM OF 0.9. DR. HALLMAN NOTIFIED. WILL AWAIT NEW ORDERS AND NOTIFY ONCOMING SHIFT.
--- NOTE | 2020-11-12 11:08 | NUR ---
SPOKE WITH SON RUSTAM TALAVERA ([phone]) EXPLAINED ASPIRATION PNA AND NEED FOR COMMERCIAL THICKENER IN ALL LIQUIDS TO NECTAR CONSISTENCY. SON VERBALIZED UNDERSTANDING. SON REQUESTS RESUMPTION OF HOME HEALTH. THIS RN REACHED OUT TO CASE MANAGEMENT, WHO STATES THAT SHE WILL CONTACT SON AND WORK ON GETTING HOME HEALTH ARRANGED.
[2020-11-12] MEDS ORDERED: CEFPODOXIME PR200 MG PO (11:50)
[2020-11-12] MEDS ORDERED: ACET325 PO (11:50)
--- NOTE | 2020-11-12 14:46 | NUR ---
DISCHARGE EDUCATION COMPLETED, WITH PRESENT. SON ALSO CALLED AND GIVEN DISCHARGE INSTRUCTIONS VIA TELEPHONE. WRITTEN INSTRUCTIONS PROVIDED FOR PATIENT AND ANOTHER COPY FOR SON. PATIENT AND VERBALIZED UNDERSTANDING OF THE DISCHARGE INSTRUCTIONS AND ALL OF THEIR QUESTIONS WERE ANSWERED. CASE MANAGEMENT IS MEETING WITH PT AND AT THIS TIME REINFORCE DISCHARGE PLAN.
== END 2020-11-12 15:08 | disposition home health service (06) | DRG 177 ==
LOC: ER 15:28 → MEDS 15:29
PROVIDERS: Emergency Medicine; Hospitalist; Nurse Practitioner Acute Care; Physician Assistant; ADMIT Internal Medicine
DX: J69.0 Pneumonitis due to inhalation of food and vomit (principal); J96.21 Acute and chronic respiratory failure with hypoxia; I50.33 Acute on chronic diastolic (congestive) heart failure; I13.0 Hypertensive heart and chronic kidney disease with heart failure and stage 1 through stage 4 chronic kidney disease, or unspecified chronic kidney disease; F05 Delirium due to known physiological condition; J44.1 Chronic obstructive pulmonary disease with (acute) exacerbation; Z66 Do not resuscitate; Z20.822 Contact with and (suspected) exposure to COVID-19; N18.30 Chronic kidney disease, stage 3 unspecified; E78.5 Hyperlipidemia, unspecified; I48.0 Paroxysmal atrial fibrillation; Z79.01 Long term (current) use of anticoagulants; Z99.81 Dependence on supplemental oxygen; Z95.2 Presence of prosthetic heart valve; Z95.1 Presence of aortocoronary bypass graft; Z87.891 Personal history of nicotine dependence; I25.10 Atherosclerotic heart disease of native coronary artery without angina pectoris; R13.12 Dysphagia, oropharyngeal phase; G30.9 Alzheimer's disease, unspecified; F02.80 Dementia in other diseases classified elsewhere, unspecified severity, without behavioral disturbance, psychotic disturbance, mood disturbance, and anxiety
CPT/HCPCS: 0202U; 0241U; 36415; 71046; 71260; 80048; 80053; 82803; 83735; 83880; 84100; 84145; 84484; 85025; 92526; 92610; 93005; 93010; 94640; 94760; 94762; 96365; 96367; 96375; 97110; 97162; 97165; 99285-25; A9270; G0378; J0456; J0696; J1940; J3475; J7050; Q9967

== ENCOUNTER 2020-12-01 03:20 | Inpatient (IN) | payer OTHER ==
[~2020-12-01] VITALS: Ht 152.4 cm; Wt 56.7 kg
[~2020-12-01 03:20] MED LIST changes: +ACET325 PO; +CALCIUM PO; +CEFPODOXIME PR200 MG PO; +COLCHICINE0.6 MG PO; +ELIQUIS5 M3 PO; +IPRAT-ALBUT 0.5-3 ML NEB; +METOPROLOL SUCC25 MG PO; +OMEP20ER PO; +PRAMIPEXOLE DIHY1 M1 PO; +SYMBICORT 16010.2 GM INH; +VITAMIN D31000 UNI1 PO
[2020-12-01 03:43] LABS: BASOPHILS ABSOLUTE AUTO 0.11 K/mm3 (0.00-0.23); BASOPHILS PERCENT AUTO 1 % (0-2); EOSINOPHILS ABSOLUTE AUTO 0.35 K/mm3 (0.00-0.68); EOSINOPHILS PERCENT AUTO 3 % (0-6); Hematocrit 41.3 % (33.0-51.0); Hemoglobin 11.8 g/dL (11.5-16.0); IMMATURE GRAN ABSOLUTE AUTO 0.08 K/mm3 (0.00-0.10); IMMATURE GRAN PERCENT AUTO 1 % (0-1); LYMPHOCYTES ABSOLUTE AUTO 5.57 K/mm3 (0.84-5.20); LYMPHOCYTES PERCENT AUTO 43 % (21-46); MONOCYTES ABSOLUTE AUTO 0.78 K/mm3 (0.16-1.47); MONOCYTES PERCENT AUTO 6 % (4-13); Mean Corpuscular HGB 24.8 pg (26.0-34.0); Mean Corpuscular HGB Conc 28.6 g/dL (31.5-36.5); Mean Corpuscular Volume 87 fL (80-100); Mean Platelet Volume 9.6 fL (9.1-12.4); NEUTROPHILS ABSOLUTE AUTO 5.99 K/mm3 (1.96-9.15); NEUTROPHILS PERCENT AUTO 47 % (41-73); Platelet Count 211 K/mm3 (150-400); RDW Coefficient Variation 18.9 % (11.7-14.2); Red Blood Cell Count 4.76 M/mm3 (3.80-5.20); White Blood Cell Count 12.88 K/mm3 (4.00-11.30)
[2020-12-01 03:53] LABS: Source, Urine Catheter
[2020-12-01 03:56] LABS: Bilirubin, Urine Neg (Neg); Blood, Urine 2+ (Neg); Glucose Qualitative, Urine Neg (Neg); Ketones, Urine Neg (Neg); Leukocyte Esterase, Urine 3+ (Neg); Nitrite, Urine Neg (Neg); Protein, Urine 3+ (Neg); Specific Gravity, Urine 1.015 (1.003-1.022); Urobilinogen, Urine NORM (Normal)
[2020-12-01 03:56] LABS: PCO2 Arterial 49.3 mmHg (35-45); PO2 Arterial > 100 mmHg (80-100); pH Blood Arterial 7.26 (7.35-7.45)
[2020-12-01 04:03] LABS: Appearance, Urine Hazy (Clear); Color, Urine Yellow (P-Yellow)
[2020-12-01 04:04] LABS: Bacteria Many /hpf; Hyaline Casts 0-2 /lpf (0-2); Red Blood Cells, Urine 0-2 /hpf (0-2); Squamous Epithelial Cells Not Seen /hpf (Few); White Blood Cells, Urine TNTC /hpf (0-5)
[2020-12-01 04:04] LABS: Albumin, Blood 3.3 g/dL (3.4-5.0); Albumin/Globulin Ratio 0.8 (0.8-1.8); Bilirubin, Total 0.3 mg/dL (0.1-1.0); Bun/Creatinine Ratio 22.6 (12.0-20.0); Calcium, Blood 8.7 mg/dL (8.5-10.1); Creatinine, Blood 1.06 mg/dL (0.40-1.00); Potassium, Blood 4.8 mmol/L (3.5-5.5); Total Protein, Blood 7.3 g/dL (6.4-8.2); Troponin I 0.154 ng/mL (0.000-0.040)
[2020-12-01 04:20] LABS: Influenza A, PCR NEGATIVE (NEGATIVE); Influenza B, PCR NEGATIVE (NEGATIVE); Resp Syncytial Virus, PCR NEGATIVE (NEGATIVE); SARS-Cov-2 (COVID-19) PCR, MMC NEGATIVE (NEGATIVE)
[2020-12-01 04:54] LABS: Magnesium, Blood 1.1 mg/dL (1.6-2.4)
--- NOTE | 2020-12-01 06:46 | NUR ---
ASSUMED PT CARE FROM ED AT 0530 PT INTUBATED AND SEDATED. PROPOFOL OFF AT THIS TIME D/T LABILE BP'S. VERSED AT 2MG/HR AND LEVOPHED AT 15MCG/MIN; SBP 128. THEREFORE, TITRATED LEVOPHED DOWN TO 10MCG/MIN; SEE FLOWSHEET FOR TITRATIONS FROM THAT POINT FORWARD. VERSED TURNED OFF AND PROPOFOL TURNED BACK ON AT 30MCG/KG/MIN D/T PT BITING DOWN ON ETT, WHICH QUICKLY INCREASED TO 50MCG/KG/MIN D/T PT ATTEMPTING TO SELF EXTUBATE WITH PURPOSEFUL MOVEMENT TOWARD ETT. BILATERAL SOFT WRIST RESTRAINTS IN PLACE. VENT AC 18, VT 400, PEEP 5, FIO2 75%; BIOX >90%. PT HAS AN IRREGULAR RHYTHM NOTED WITH HR 90'S WITH PAC'S NOTED; HX OF AFIB. LUNG SOUNDS ARE VERY COARSE T/O. PT HAS A HX OF ASPIRATION PNEUMONIA. WHEN DISCUSSING SITUATION WITH HE DOESN'T APPEAR TO UNDERSTAND SEVERITY OF PT'S ASPIRATION. HE STATES SHE FOLLOWS THICKENED LIQUIDS AND MECHANICAL SOFT DIET; HOWEVER, THEN PROCEEDS TO TELL ME SHE DRINKS COFFEE AND WINE. IS VERY HARD OF HEARING; THEY HAVE ONLY BEEN FOR 2.5 YEARS AND HE ALSO APPEARS FORGETFUL. LACTIC ACID RETURNED AT 2.2; RESULTS CALLED TO DR. FERNANDEZ WITH ORDERS TO ADMINISTER ONE MORE LITER OF NS WO; HOWEVER, WHILE GIVING BEDSIDE REPORT TO ULYSSES OSEGUERA PT WENT INTO AFIB WITH RVR; HR 160-180'S. STOPPED FLUIDS IN THE MEANTIME UNTIL PHYSICIAN CAN BE NOTIFIED REGARDING RATE. REPORT HANDED OFF TO ULYSSES OSEGUERA
--- NOTE | 2020-12-01 07:30 | NUR ---
Received report from Shady ARORA. Esteban is intubated and sedated. Upon ghetting report patient converted to A-Fib RVR rate 140-200's, called Dr Garcia and received order for 2.5 mg Metoprolol x2 q 15 . Gave first dose and reacted very brief and then waited to give second dose just now and same result. She is intubated with 8.0 ET and 24 cm at gums with vent settings of AC 18m TV 400, FiO2 75% and PEEP 5.0 and sats 94%. Had to restart Levophed back 3 mcg/min to keep MAP >65. She has RIJ infusing Propofol at 40mcg/kg/min, Levophed at 3 mcg/min, NS at 100ml/hr. She has 16 Fr temp ly draining to gravity and temp of 98.6. She opens eye to verbal stimuli. She has bilateral sogt wrist restraints in place.
--- NOTE | 2020-12-01 09:30 | NUR ---
Patient continued in A-fib RVR rate 140-200's, Dr Garcia ordered 20mg bolus Cardizem i gave at 0820 and start gtt just after 0840 titrate to affect. Reacted imediately drop 80-100's. Gave mag 2GM, and Abx's. Patient remains awake to verbal stimuli, Dr Garcia by briefly to assess.
--- NOTE | 2020-12-01 11:43 | NUR ---
Stopped Cardizem gtt as patient converted to ST 80's. Patient wide awake and able to answer simple questions. Dr Garcia came in and set FiO2 to 50 % but shortly after increased to 60% and sats >90%. I increased over last hour Levophed to 8 mcg/min No other changes in vent or gtt settings.
--- NOTE | 2020-12-01 13:45 | NUR ---
Increased sedation of Propofol to 55 mcg/kg/min. and helped with agitation of tube. Started her tube feeding of VHP at 25 ml/hr and 30 mlwater flushed Q4. VSS, See EMR. She is still awakens to verbal stimuli. No vent setting changes from last settings of AC 18, TV 400, FiO2 55% and PEEP 5.0 with sats >90%.
[2020-12-01 15:16] LABS: International Normalized Ratio 1.05; Prothrombin Time Results 11.2 Sec (9.7-11.5)
--- NOTE | 2020-12-01 15:54 | NUR ---
is at bedside and has been talking with patient. Dr Garcia is currently speaking with on update. No vent setting changes or gtt setting changes. VSS, See EMR. Levophed at 8 mcg/kg/hr and Propofol at 55 ,cg/kg/min and NS at 100 ml/hr.
--- NOTE | 2020-12-01 18:26 | NUR ---
Patient continues to bed sedated and intubated. Vent setting AC 18, TV 400, FiO2 60% and PEEP 5.0 and sats >90%. PowerGlide NANI infusing Propofol at 50 mcg/kg/min and Precedex at 1.4 mcg/kg/hr. RFA 20 ga IV infuising NS TKO. He has OG with Pivot 1.5 at goal rate of 35ml/hr and 30 mlwater flushes Q4. 16 Fr. ly draining to gravity had 1150 dereje urine out. SCD's bilateral LE's and Bilateral soft wrist restraints.
--- NOTE | 2020-12-01 18:43 | NUR ---
Patient's went home. She remains agitated and Dr Garcia added Precedex 0.7 mcg/kg/hr, Proprofol at 60 mcg/kg/min, and NS at 100ml/hr through RIJ. Also gave her 2 mg Ativan as agitation continued and she is resting quietly now. Increased Levophed to 10 mcg/min for MAPS <65 and are currently >65. Her 16Fr Hu drainiong to gravity had 750ml and less than 50ml of stool.
--- NOTE | 2020-12-02 03:28 | NUR ---
ASSUMED CARE AT 1900 PT LAYING IN BED INTUBATED WITH VENT SETTINGS AC 14, TV 380, PEEP 5, FIO2 65%. PT HAS MINIMAL RESPONSE TO VERBAL STIMULI BUT IS REPONSIVE TO TOUCH, SUCTIONING, AND ORAL CARE. PT MOVES BLE AND TRYS TO PULL ON RESTRAINTS. PRECEDEX INFUSING AT 0.7MCG/KG/HR. PROPOFOL INFUSING AT 60MCG/KG/MIN. AFIBRILE. HR 70-80'S. SBP 100-120. LEVOPHED INFUSING AT 10MCG/MIN. VHP INFUSING VIA OG AT 25ML/HR WITH 30ML WATER FLUSHES Q4HR, PLAN TO INCREASE VHP TO GOAL OF 35ML/HR AT 2100. HORVATH PATENT AND DRAINING TO GRAVITY. NS INFUSING AT 100ML/HR. ALL GTTS INFUSING VIA CENTRAL LINE IN RIGHT IJ. SEE SHIFT ASSESSMENT FOR FULL ASSESSMENT.
--- NOTE | 2020-12-02 03:37 | NUR ---
INCREASE IN HR AROUND 2034 PT HR INCREASED FROM BASELINE OF 70-80'S UP TO IRREGULAR 120-160'S. CARDIZEM GTT RESTARTED AT 5MG/HR AND TITRATED UP TO 15ML/HR UNTIL HR CONVERTED BACK TO 70'S AROUND 2129. CARDIZEM THEN TITRATED BACK DOWN TO 5MG/HR AND HAS SUSTAINED SINUS RHTHYM AT THIS INFUSION RATE.
--- NOTE | 2020-12-02 03:48 | NUR ---
BED BATH AT 2230 DURING PT BED BATH, PT WAS BEING REPOSITIONED ONTO HER RIGHT SIDE TO ASSIST WITH CHANGING LINENS AND RECIEVED A SKIN TEAR ON HER RIGHT FOREARM WHEN REPOSITIONED BACK TO HER BACK. PARTS SALESMAN NOTIFIED AND A PICTURE OF WOUND PLACED IN CHART. WOUND CLEANED WITH WOUND COOK PIE SPRAY, MEPITEL PLACED, BACITRACIA ZINC OINTMENT APPLIED, HIEN SPONGE PLACED ON TOP, AND GAUZE BANDAGE WRAPPED AROUND FOREARM.
--- NOTE | 2020-12-02 04:00 | NUR ---
HEPARIN STARTED HEPARIN INFUSION STARTED AT 0054 AT 13UNITS/KG/HR.
[2020-12-02 04:32] LABS: BASOPHILS ABSOLUTE AUTO 0.03 K/mm3 (0.00-0.23); BASOPHILS PERCENT AUTO 0 % (0-2); EOSINOPHILS PERCENT AUTO 0 % (0-6); Hemoglobin 10.3 g/dL (11.5-16.0); IMMATURE GRAN ABSOLUTE AUTO 0.07 K/mm3 (0.00-0.10); IMMATURE GRAN PERCENT AUTO 1 % (0-1); LYMPHOCYTES ABSOLUTE AUTO 0.51 K/mm3 (0.84-5.20); LYMPHOCYTES PERCENT AUTO 4 % (21-46); MONOCYTES ABSOLUTE AUTO 0.08 K/mm3 (0.16-1.47); MONOCYTES PERCENT AUTO 1 % (4-13); Mean Corpuscular HGB 24.9 pg (26.0-34.0); Mean Corpuscular HGB Conc 29.4 g/dL (31.5-36.5); Mean Corpuscular Volume 85 fL (80-100); Mean Platelet Volume 9.8 fL (9.1-12.4); NEUTROPHILS ABSOLUTE AUTO 12.92 K/mm3 (1.96-9.15); NEUTROPHILS PERCENT AUTO 95 % (41-73); Platelet Count 182 K/mm3 (150-400); RDW Coefficient Variation 18.8 % (11.7-14.2); RDW Standard Deviation 58.1 fL (35.1-46.3); Red Blood Cell Count 4.13 M/mm3 (3.80-5.20); White Blood Cell Count 13.61 K/mm3 (4.00-11.30)
[2020-12-02 04:46] LABS: Anion Gap 8 mmol/L (6-16); Blood Urea Nitrogen 20 mg/dL (8-24); Bun/Creatinine Ratio 21.4 (12.0-20.0); CO2, Blood 21 mmol/L (21-32); Calcium, Blood 8.2 mg/dL (8.5-10.1); Chloride, Blood 115 mmol/L (98-108); Creatinine, Blood 0.93 mg/dL (0.40-1.00); Glomerular Filtration Rate >60 (60-); Glucose, Blood 235 mg/dL (70-99); Magnesium, Blood 2.1 mg/dL (1.6-2.4); Phosphorus, Blood 2.2 mg/dL (2.5-4.9); Potassium, Blood 3.6 mmol/L (3.5-5.5); Sodium, Blood 144 mmol/L (136-145)
[2020-12-02 05:06] LABS: PCO2 Arterial 39.8 mmHg (35-45); PO2 Arterial 94.6 mmHg (80-100); pH Blood Arterial 7.32 (7.35-7.45)
--- NOTE | 2020-12-02 07:14 | NUR ---
END OF SHIFT SUMMARY PT CONT TO BE INTUBATED WITH VENT SETTINGS AC 14, TV 380, PEEP 5, FIO2 55%. PT RESPONSIVE TO PAINFUL STIMULI, ORAL CARE, AND SUCTIONING; PROPOFOL INFUSING AT 60MCG/KG/MIN, PRECEDEX INFUSING AT 0.7MCG/KG/HR. AFIBRILE. HR 60-70; CARDIZEM INFUSING AT 5MG/HR. SBP 100-140; LEVOPHED INFUSING AT 6MCG/MIN. VHP INFUSING VIA OG AT 35ML/HR (GOAL) WITH 30ML WATER FLUSHES Q4HR. HORVATH PATENT AND DRAINING TO GRAVITY. HEPARIN INFUSING AT 13UNITS/KG/HR. DRESSING TO RT FOREARM C/D/I. REPORT GIVEN TO JAVIER ARORA.
--- NOTE | 2020-12-02 07:30 | NUR ---
RECEIVED PT FROM ULYSSES CALZADA. PT LYING IN BED ON VENTILATOR,AC 14/320/5/55%, SHE IS BREATHING OVER THE VENTILATOR BETWEEN 18-22. SHE IS ON PRECEDEX 0.7 MCG/KG/HR, CARDIZEM 5MG/HR, HEPARIN 13U/KG/HR, PROPOFOL @ 60 MCG/KG/MIN, NOREPINEPHRINE 4MCG/MIN, NS @ 100. HER LUNGS ARE COARSE ON THE RIGHT, DIMINISHED ON THE LEFT, TUBE FEEDING OF VITAL HI PROTEIN AT 35ML/HR WITH 30ML FLUSH OF H20. HORVATH DRAINING CLEAR YELLOW TO GRAVITY. PEDAL PULSES STRONG. SMALL REDDENED AREA ON HER LEFT HEEL AND HER COCCYX. WILL TURN Q2H AND TITRATE GTTS INDICATED.
--- NOTE | 2020-12-02 08:45 | NUR ---
OROGASTRIC TUBE ADVANCED ABOUT 12CM PER AM RADIOGRAPHS. PLACEMENT CHECKED WITH AIR BOLUS. MEDS PER OG WITH 230CC RESIDUAL.
--- NOTE | 2020-12-02 10:50 | NUR ---
ADMIT:12/01/20 DISCHARGE: DX: respiratory distress. CC: ADMIT: 11/07/20 DISCHARGE: 11/12/20 DX: PNEUMONIA ADMIT: 09/30/20 DISCHARGE: 10/02/20DX: Juanito BARRERA RVR, RF. ADMIT: 02/27/2020 DISCHARGE: DX:HYPOMAGNESEMIA ADMIT:02/03/20 DISCHARGE: 02/07/20 DX:ACUTE RESP FAILURE W/ HYPOXIA ADMIT: 12/18/19 DISCHARGE: 12/22/19 DX: ACUTE ON CHRONIC RESP. FAILURE JYOTHI CALL: CALL FOR JYOTHI RESIDENCE: HOME WITH CAREGIVER: FULL MEDICAL DISCLOSURE TO [facility] OR VANESSA TALAVERA- CHILDREN. [phone] DX: Acute resp. failure, Alzheimer's, CKD-stage 3, see list DME: Nebulizer and equipment, O2 concentrator and equipment, 4-wheeled walker, CCM: none HOME HEALTH: [facility], RESUMED. NOTIFIED DAVID OF RESUMPTION.
--- NOTE | 2020-12-02 11:09 | NUR ---
AT LAST TURN, FOAM DRESSING PLACED OVER COCCYX FOR REDDENED AREA, RIGHT CENTRAL LINE DRESSING CHANGED. PT TOLERATED WELL, PROPOFOL TURNED DOWN.
--- NOTE | 2020-12-02 15:07 | NUR ---
Pt resting in bed with her eyes closed. Pt is currently sedated and intubated. Pt's spouse Dipesh is at bedside. Dipesh is agreeable to have conversation outside of Pt's room. Escorted Dipesh to ED Palliative Care office. Engaged in therapeutic discussion regarding goals of care. Listened as Dipesh relays conversation he had with Dr Johnson. Answered questions and continued therapeutic listening. Dipesh discusses family dynamics with Pt's son and daughter not being involved with Pt as much as he would like them to be. Dipesh states he feels Pt's son only comes around when he needs money. Continued therapeutic listening. Dipesh asks when Pt will be extubated. Discussed this will happen when he instructs staff to extubate. Encouraged Dipesh to consider the importance of informing Pt's children of condition and considering withdrawal of care. Dipesh reports plan to talk with Pt's son. Dipesh also reports Pt has a daughter in [place] who's is fighting brain cancer. Discussed code status. Dipesh reports Pt would not want CPR in her current condition and is agreeable to make Pt DNR. Continued therapeutic listening. No other concerns reported at this time. Dipesh expresses appreciation of discussion. Spoke with Bedside ULYSSES Vera and discussed case. Spoke with Dr Johnson and discussed case. Placed order for code status to be DNR per V/O from Dr Johnson. Palliative Care will remain available.
--- NOTE | 2020-12-02 18:37 | NUR ---
JOSSIE HAS REMAINED ON THE VENTILATOR, SETTINGS AC 14/320/5/45% SATS >95%. HER LUNGS HAVE BEEN COARSE/DIMINISHED T/O THE DAY. SHE REMAINS WITH RESTRAINTS INTACT, RELEASED AND REPOSITIONED Q2H, TUBE FEEDING CONTINUES AT 35ML/HR WITH 30ML Q4H FLUSH. PRECEDEX @ 0.4 MCG/KG/HR, CARDIZEM @ 5MG/HR I JUST RESTARTED THIS AFTER IT BEING OFF FOR THE LAST COUPLE OF HOURS, HEARTRATE WENT BACK UP TO 120'S, ATRIAL FIB. HEPARIN GTT @ 13.5 U/KG/HR, PROPOFOL @ 50 MCG/KG/MIN, LEVOFED @ 3 MCG/MIN. NORMAL SALINE @ 100ML/HR. NACHO WAS WITH HER THIS AFTERNOON, HE IS ASKING A LOT OF QUESTIONS, SPOKE AT LENGTH WITH , ALSO TO STEPHANIE,RN FROM PALLIATIVE CARE, ALSO TO THIS RN. HE IS WAVERING WITH WHAT TO DO WITH JOSSIE'S CARE AND HOW TO PROCEED. HER CARDIZEM JUST TURNED UP TO 10 MG/HR HER HEART RATE CONTINUES PAST 120. WILL REPORT OFF TO NEXT SHIFT WHEN ABLE.
[2020-12-03 05:44] LABS: Anion Gap 8 mmol/L (6-16); Blood Urea Nitrogen 21 mg/dL (8-24); Bun/Creatinine Ratio 26.7 (12.0-20.0); CO2, Blood 19 mmol/L (21-32); Chloride, Blood 121 mmol/L (98-108); Creatinine, Blood 0.79 mg/dL (0.40-1.00); Glomerular Filtration Rate >60 (60-); Glucose, Blood 181 mg/dL (70-99); Magnesium, Blood 1.8 mg/dL (1.6-2.4); Phosphorus, Blood 2.2 mg/dL (2.5-4.9); Potassium, Blood 3.9 mmol/L (3.5-5.5); Sodium, Blood 148 mmol/L (136-145)
--- NOTE | 2020-12-03 07:39 | NUR ---
1900: ASSUMED CARE OF PT, GTTS VERIFIED WITH OFFGOING RN. PT SEDATED AND INTUBATED, PRESSURES NOTED HYPOTENSIVE WITH HEART RATE BETWEEN 70 AND 110 AT THIS TIME, CARDIZEM TITRATED DOWN WILL MONITOR. SEE ICU FLOWSHEET FOR GTT TITRATIONS. SEE SHIFT ASSESSMENT. 629: PROPOFOL GTT WAS TITRATED UP TO 65 MCG/KG/MIN FROM INITIAL RATE OF 50 MCG/KG/MIN SECONDARY TO INCREASED PATIENT AGITATION, RR INCREASED TO GREATER THAN 30/MIN, PT SHAKING HEAD SIDE TO SIDE AND CHEWING ON ETT, PULLING AGAINST BILAT WRIST RESTRAINTS. AGITATION IMPROVED WITH INCREASE IN PROPOFOL AND ATIVAN ADMINISTRATION. SEDATION VACATION FOR SPONT BREATHING TRIAL THIS AM, SEDATION RESUMED "5 MINUTES EARLY" FOR MARKED INCREASE IN AGITATION, THRASHING IN BED, PULLING AGAINST RESTRAINTS, CHEWING ON TUBE, APPEARS TO BE MOUTHING WORDS RAPIDLY, DOES NOT REDIRECT. SKIN TEAR DRESSING REPLACED TO RIGHT FOREARM FOLLOWING BEDBATH THIS AM.
--- NOTE | 2020-12-03 08:00 | NUR ---
PT REMAINS INTUBATED, SEDATED, AND RESTRAINED. OPENS EYES TO VOICE. BECOMES RESTLESS, GRIMACES, AND PULLS ON RESTRAINTS. PT GENERALLY WEAK. PROPOFOL DRIP @ 65 MCG/KG/MIN, PRECEDEX @ 0.5 MCG/MIN FOR SEDATION, AND PT MED WITH FENTANYL 50 MCG IVP X1 FOR PAIN/SEDATION ADJUNCT. TEMP 100.0. ECG SHOWS AFIB WITH RATE 70-90'S ON DILTIAZEM @ 5MG/HR. MAP TRENDING >60-65 WITH LEVOPHED@ 2 MCG/MIN.ETT TO VENT: AC 14, TV 320, PEEP 5, FIO2 45%-SATS>90%-RR MID 20'S. LUNGS DIMINISHED BILATERALLY AND COARSE R>L. SUCTION PRODUCTIVE OF A SMALL AMOUNT OF THIN, TANISH SECRETIONS. PT TOLERATING OGTF WITH 10 CC RESIDUAL-REFED. HORVATH WITH ADEQUATE AMOUNT OF YELLOW URINE TO UROMETER. GENERALIZED EDEMA NOTED EXPECIALLY TO PT HANDS. EXTREMITITES ELEVATED ON PILLOWS. DRESSING TO SKIN TEAR ON RIGHT FOREARM IS C/D/I. FOAM DRESSING TO COCCYX C/D/-PLACE 12/02/20-PREVENTATIVE.
[2020-12-03 08:38] LABS: Vancomycin, Trough 11.3 ug/mL (5.0-10.0)
--- NOTE | 2020-12-03 09:27 | NUR ---
DILTIAZEM 30 MG GIVEN PER OGT. CLIFF DISCONTINUE DILTIAZEM DRIP IN ONE HOUR.
--- NOTE | 2020-12-03 10:45 | NUR ---
ATTEMPTED TO TITRATE PROPOFOL DOWN TO 50 MCG/KG.MIN PER DR. HECTOR VERBAL ORDER. PT BECAME AGITATED, THRASHING HER HEAD ABOUT THE PILLOW, GRIMACING, AND COUGHING. RESUMED PROPOFOL @ 65 MCG/KG/MIN.
--- NOTE | 2020-12-03 11:25 | NUR ---
SPOKE WITH PT SON DEL. PT SON NOT AWARE OF THE SEVERITY OF HIS MOTHERS ILLNESS. A MATTER OF FACT, HE JUST LEARNED THAT HIS MOTHER IS IN THE HOSPITAL. PT SON TO SPEAK WITH PT AND DAUGHTER. THEY WILL DISCUSS THE POSIBILITY OF MAKING PT COMFORT CARE STATUS TODAY. PT SON TO CALL BACK WITH AN UPDATE ONCE A DECISION HAS BEEN MADE.
--- NOTE | 2020-12-03 12:59 | NUR ---
PT SON RUSTAM(OVER THE PHONE NAME THOUGHT TO BE DEL) AT BEDSIDE. RN AND PALLIATIVE CARE STEPHANIE SPOKE WITH HIM. PT SPOUSE, NACHO HAS BEEN CONTACTED AND HE IS PLANNING TO COME IN [place]. PT DAUGHTER HAS BEEN UPDATED BY HER BROTHER. SHE IS NOT ABLE TO TRAVEL DUE TO HEALTH ISSUES. SAGEL WITH CALL HER AND HAVE HER ON SPEAKER PHONE WHEN PALLIATIVE CARE SPEAKS WITH THE FAMILY ABOUT POSSIBLY MAKING PT COMFORT CARE.
--- NOTE | 2020-12-03 14:20 | NUR ---
FINAL DISCHARGE CHECKLIST INITIATED. PT EXTUBATED TO RA. ALL IV DRIP DISCONTINUED. PT GRIMACING, TENSE, AND INCREASED WOB NOTED. MED WITH DILAUDID 1 MG AND ATIVAN 1 MG IVP X1 SEE EMAR. PT SPOUSE AND SON AT BEDSIDE.
--- NOTE | 2020-12-03 14:26 | NUR ---
12/03/20- per chart review with Dr. Siddiqui, pt is still intubated and sedated. Family is to have meeting with pallative care to decided if pt will be placed on comfort care. Son is in the hospital along with , daughter was consulted over the phone. Per the pt's chart, she has been placed on comfort care. Nutritional support has been discontinued. -joe
--- NOTE | 2020-12-03 14:35 | NUR ---
PT GRIMACING AND MOANING-INCREASED WOB NOTED. MED WITH MORPHINE 5 MG IVP X 1. SEE EMAR.
--- NOTE | 2020-12-03 14:46 | NUR ---
Multiple visits today. Family has elected to withdraw care. Offered therapeutic listening and answered questions. Pt's spouse and Pt's son at bedside. Dr Johnson is in agreement with plan and spoke with family when they first arrive regarding goals of care. Dr Johnson will place comfort care orders. Provided gentle education on S/S Pt may experience. Family leaves room temporarily for extubation process. Bedside RN Jody medicates for comfort. Family arrives back to room. Offered supportive visit and encouraged family to speak to Pt. Ended visit to allow alone time with Pt. Palliative Care will remain available.
--- NOTE | 2020-12-03 14:56 | NUR ---
PT GRIMACING, MOANING, CONTINUES TO LABOR WITH BREATHING. MED WITH DILAUDID 1 MG IVP X1.
--- NOTE | 2020-12-03 15:06 | NUR ---
PT AIR HUNGER AND WOB INCREASING. MORPHINE 10 MG NEBULIZER GIVEN.
--- NOTE | 2020-12-03 15:40 | NUR ---
GRIMACING AND AIR HUNGER CONTINUES. MED WITH MORPHINE 5 MG IVP X1. RESPIRATIONS AUDIBLY MOIST. MED WITH ATROPINE DROPS S.L.
--- NOTE | 2020-12-03 16:43 | NUR ---
Spiritual care note: Met with spouse and son. Both appear uncomfortable with . Yet, both express understanding and agreement with allowing Agnes a peaceful passing. Offered prayer and affirmation of obvious love. Facilitated story-telling and expressions of gratitude. I will remain available.
--- NOTE | 2020-12-03 17:16 | NUR ---
PT GRIMACING AND LABORING TO BREATHE. RESP AUDIBLY MOIST AND IRREGULAR. MED WITH ATIVAN 2 MG IVP AND MORPHINE 5 MG IVPX1. REPOSITIONED PT TO SUPINE POSITION WITH HOB 45 DEGREES. WITH POSITION CHANGE, TOI LASSITER RESPIRATIONS NOTED AND SAT REGISTERING 1 4% WITH GOOD PLETH. PT SPOUSE AND SON CONTACTED THEY HAD STEPPED OUT OF THE ROOM TO GET DINNER. BOTH NOTIFIED THAT PT APPEARS IMMINENT.
--- NOTE | 2020-12-03 17:39 | NUR ---
PT FAMILY AT BEDSIDE. PT GASPING FOR BREATH-INCREASED WOB AND AIR HUNGER NOTED. MED WITH MORPHINE SULFATE 5 MG IVP X 1.
--- NOTE | 2020-12-03 18:49 | NUR ---
TOI-LASSITER RESPIRATIONS CONTINUE. SATS 58-77% AIR HUNGER SEEMS IMPROVED. PT NOT GRIMACING AT THIS TIME. PT SPOUSE AND SON REMAIN AT THE BEDSIDE-DISCUSSED PT WOB, AIR HUNGER, AND PAIN-FAMILY FEELS THAT PT LOOKS "COMFORTABLE" AT THIS TIME AND WILL NOTIFY RN IF THEY FEEL THAT PT NEEDS MEDICATED.
--- NOTE | 2020-12-04 06:49 | NUR ---
SHIFT SUMMARY PT SLEPT THROUGH SHIFT. ATIVAN X1, ATROPINE X1, DILAUDID X1. TELE NSR. ROOM AIR. Q2 TURNS. HORVATH - MINIMAL DRAINAGE 150ML. NO BM. AT BEDSIDE MAJORITY OF SHIFT. OTHERWISE, PT SEEMS TO BE RESTING COMFORTABLY. WILL CONTINUE TO MONITOR.
--- NOTE | 2020-12-04 08:40 | NUR ---
ASSUMED CARE OF PT. PT CURRENTLY RESTING IN BED WITH EYES CLOSED. NO FAMILY CURRENTLY AT BEDSIDE. HORVATH IN PLACE DRAINING TO GRAVITY. RIJ ALSO IN PLACED, SALINE LOCKED.
--- NOTE | 2020-12-04 09:29 | NUR ---
Comfort Care Visit Pt resting in bed with her eyes closed upon arrival. Pt is non responsive. Offered gentle touch and therapeutic voice. Pt appears mildly anxious as evidenced by intermittent turn of her head and lower extremities. Mild secretions noted. Family at bedside. Answered questions and provided gentle education on S/S Pt may experience. Spoke with Bedside Nakita, discussed case and reviewed comfort medications. Ordered comfort care cart for family. Palliative Care will remain available for symptom management and supportive visits.
--- NOTE | 2020-12-04 15:39 | NUR ---
Spiritual care note: Met with spouse, Dipesh, at bedside. He reminised and was appreciative of companionship.conversation. Agnes appears very near end-of-life. Apnec breaths, non-responsive, but comfortable. Son arrived. Both men are accepting of Agnes's path but decline prayer. They respond well to emotional affirmation and gentle college counselor. I will remain available.
--- NOTE | 2020-12-04 17:14 | NUR ---
Spiritual care note: Agnes passed peacefully thanks to excellent nursing care and attention. Spouse and son tearful, but appropriate. Offered gentle assessment counselor and emotional affirmation. [facility] was selected by spouse for final arrangements.
--- NOTE | 2020-12-04 17:48 | NUR ---
TIME OF 1653. FAMILY NOTIFIED OF PT'S PASSING. DR LANDIS NOTIFED OF PT'S PASSING. CHARGE NURSE UPDATED HOUSE SUPPER VISOR. LUCIOKEN TOSCANO NOTIFIED AND WAS AT BEDSIDE TO SUPPORT FAMILY. ALL QUESTIONS ANSWERED. FAMILY CHOSE [facility].
--- NOTE | 2020-12-04 17:51 | NUR ---
Received call that Pt has . Spouse at bedside and this RN offered condolences. Offered therapeutic listening. Spouse is requesting home to be contacted for transportation. Spouse expresses appreciation and reports no concerns at this time. Spouse appears to be grieving appropriately. Spoke with Bedside RN Nakita and relayed wishes for home to contacted. Nakita will contact [facility]. Palliative Care will remain available.
== END 2020-12-04 16:54 | DRG 871 ==
LOC: ER 03:20 → ICUW 04:21
PROVIDERS: Emergency Medicine; Internal Medicine Critical Care Medicine; Pharmacist; ADMIT Family Medicine
PROC: 0BH17EZ Insertion of Endotracheal Airway into Trachea, Via Natural or Artificial Opening (ICD-10-PCS; principal; 2020-12-01)
PROC: 5A1945Z Respiratory Ventilation, 24-96 Consecutive Hours (ICD-10-PCS; 2020-12-01)
DX: A41.9 Sepsis, unspecified organism (principal); J96.21 Acute and chronic respiratory failure with hypoxia; I21.A1 Myocardial infarction type 2; J96.22 Acute and chronic respiratory failure with hypercapnia; R65.21 Severe sepsis with septic shock; J18.9 Pneumonia, unspecified organism; E87.2 Acidosis; J44.1 Chronic obstructive pulmonary disease with (acute) exacerbation; J44.0 Chronic obstructive pulmonary disease with (acute) lower respiratory infection; Z51.5 Encounter for palliative care; Z95.2 Presence of prosthetic heart valve; Z87.891 Personal history of nicotine dependence; Z20.822 Contact with and (suspected) exposure to COVID-19; Z99.81 Dependence on supplemental oxygen; G30.9 Alzheimer's disease, unspecified; F02.80 Dementia in other diseases classified elsewhere, unspecified severity, without behavioral disturbance, psychotic disturbance, mood disturbance, and anxiety; Z95.1 Presence of aortocoronary bypass graft; G25.81 Restless legs syndrome; I12.9 Hypertensive chronic kidney disease with stage 1 through stage 4 chronic kidney disease, or unspecified chronic kidney disease; I48.0 Paroxysmal atrial fibrillation; I25.10 Atherosclerotic heart disease of native coronary artery without angina pectoris; Z66 Do not resuscitate; Z78.1 Physical restraint status; N18.30 Chronic kidney disease, stage 3 unspecified
CPT/HCPCS: 0241U; 31500; 31720; 36415; 36556; 36600; 51702; 71045; 80048; 80053; 80202; 81001; 82330; 82803; 82947; 83605; 83735; 84100; 84145; 84484; 85025; 85610; 85730; 87077; 87086; 87186; 88108; 88312; 93005; 93010; 94002; 94003; 94640; 96365-59; 96375-59; 99291-25; A9270; C1751; C9113; J0330; J0692; J1170; J1265; J1644; J1650; J1956; J2060; J2250; J2270; J2704; J2920; J3010; J3370; J3475; J7030; J7050; J7060